=== PATIENT | female | born 1950 | race Caucasian/White ===

== ENCOUNTER 2022-06-06 12:51 | Emergency (ER) | payer MEDICARE, BC, SELFPAY ==
--- NOTE | 2022-06-06 13:06 | CRLHL7_ITS ---
For Patients: As a result of the Cures Act, medical imaging exams and procedure reports are released immediately into your electronic medical record. You may view this report before your referring provider. If you have questions, please contact your health care provider. INDICATION: Cough. TECHNIQUE: Chest 1 views. COMPARISON: None. FINDINGS: Lungs: Clear lungs. No consolidation. Pleura: No pleural effusion or pneumothorax. Heart and Mediastinum: The cardiomediastinal silhouette is normal. The vessels are unremarkable. Bones: Unremarkable. IMPRESSION: No acute cardiopulmonary disease. Dictated by Jules Tellez MD @ 06/06/2022 1:29:41 PM (Electronically Signed)
[2022-06-06 13:08] VITALS: BP 144/88; PULSE 85; RESP 18; TEMP 37; O2SAT 97; BMI 21.0
--- NOTE | 2022-06-06 13:17 | ED_ITS ---
HPI - Weakness General Date Seen: 06/06/22 Chief complaint: Cough Stated complaint: Congestion,cough Time Seen by Provider: 06/06/22 12:54 Source: patient and family Mode of arrival: ambulatory Limitations: no limitations History of Present Illness HPI Narrative: Patient is a kvng 72-year-old female who presents here with her she has had a cough and cold-like symptoms now for approximately 3-4 days, and a little bit of weakness associated with this. She is not having any chest pain, no shortness of breath, she is not on chronic oxygen, she had a little bit of nausea yesterday, but feels better today. Being a little bit of ibuprofen every now and then for the discomfort. She is COVID vaccinated x3, but her who is here also with her is testing positive for COVID so she thought she should also get tested. MD Complaint: generalized weakness Associated symptoms: nausea/vomiting Related Data Home Medications Medication Instructions Recorded Confirmed amlodipine 2.5 mg tablet mg 06/06/22 estradiol 0.5 mg tablet mg 06/06/22 rosuvastatin 5 mg tablet mg 06/06/22 Previous Rx's Medication Instructions Recorded nirmatrelvir 300 mg (150 mg See Rx Instructions PO .COMPLEX 06/06/22 x2)-ritonavir 100 mg tablet,dose #30 ea pack(EUA) (Paxlovid) Allergies Allergy/AdvReac Type Severity Reaction Status Date / Time No Known Drug Allergies Allergy Verified 06/06/22 13:07 Review of Systems Status of ROS: Reports: 10 or more systems reviewed and unremarkable except as noted in History and below Exam Narrative: Exam Narrative: Super pleasant lady is seen in room 2 with her , she is nontoxic, able to speak to me in full sentences and walk around the room. Her pupils are equal round reactive to light there is no scleral icterus redness TMs are normal oropharynx normal her neck is supple full range of motion normal hydration status is noted chest is good air entry bilaterally with a little bit of crackles on her left side. Posterior, tactile fremitus is negative, no dullness to percussion, heart sounds no clicks murmurs or gallops her abdomen is soft there is no guarding no past splenomegaly bowel sounds are normal. And skin was no petechiae or rashes there is no edema of her lower extremities, negative Homans sign. Const: Vital Signs, click to edit/add: Vital Signs - 24 hr 06/06/22 13:08 Temperature 98.6 F Pulse Rate [Right Pulse Oximeter] 85 Respiratory Rate 18 Blood Pressure [Ri ght Upper Arm] 144/88 H Pulse Oximetry 97 Oxygen Delivery Me thod Room Air Course Course Hospital Course: Patient is comfortable, I explained to them that her COVID is positive, given her age and other comorbidities I would suggest Paxlovid, through the liver pool interaction check, we will have her hold her Rosuvastatin and restarted 3 days after she is done, she also use or amlodipine every other day. Went over signs and symptoms of worsening, she will re-presented if this occurs. Vital Signs Vital signs: Initial Vital Signs Temperature 98.6 F 06/06/22 13:08 Temperature Source Temporal Artery Scan 06/06/22 13:08 Pulse Rate 85 06/06/22 13:08 Respiratory Rate 18 06/06/22 13:08 Blood Pressure 144/88 H 06/06/22 13:08 Blood Pressure Mean 106 06/06/22 13:08 Blood Pressure Position Sitting 06/06/22 13:08 Pulse Oximetry 97 06/06/22 13:08 Oxygen Delivery Method 06/06/22 13:08 Vital Signs Temperature 98.6 F 06/06/22 13:08 Pulse Rate 85 06/06/22 13:08 Respiratory Rate 18 06/06/22 13:08 Blood Pressure 144/88 H 06/06/22 13:08 Pulse Oximetry 97 06/06/22 13:08 Oxygen Delivery Method 06/06/22 13:08 Temperature 98.6 F 06/06/22 13:08 Pulse Rate 85 06/06/22 13:08 Respiratory Rate 18 06/06/22 13:08 Blood Pressure 144/88 H 06/06/22 13:08 Pulse Oximetry 97 06/06/22 13:08 Oxygen Delivery Method 06/06/22 13:08 MDM - Weakness MDM Narrative Medical decision making narrative: Differential diagnosis include a viral upper respiratory illness, histoplasmosis, tuberculosis, pneumonia, COPD exacerbation, emphysema, strep throat illness, bronchitis, asthma, reactive airway disease, chronic cough, medication side effects, allergic rhinitis with postnasal drip, foreign body aspiration, aspiration pneumonia, bronchiolitis, and gastroesophageal reflux disease as well as multiple other considerations. Medical Records Attestation: I reviewed the patient's medical records. Lab Data Attestation: I reviewed the patient's lab results. Labs: Lab Results 06/06/22 06/06/22 Range/Units 13:06 14:57 Sodium 141 (135-149) mmol/L Potassium 3.7 (3.6-5.1) mmol/L Chloride 103 (96-114) mmol/L Creatinine 0.6 (0.5-1.5) mg/dL Estimated Creat Clear 48.73 Estimated GFR 97 ml/min SARS-CoV-2 (PCR) POSITIVE SARS-CoV-2 A (Negative) Influenza Type A (PCR) Negative PCR FLU A (Negative) Influenza Type B (PCR) Negative PCR FLU B (Negative) RSV (PCR) Negative PCR RSV (Negative) Imaging Data Chest x-ray: Attestation: I have reviewed the pertinent imaging results. My impression: No acute findings per chest x-ray Radiologist's impression: Patient: MARSHA ESCALANTE Facility: [facility] Site . Site : 1950 Study: XRay Chest PORTABLE-06/06/2022 1:28:29 PM Ordering Physician: Jasmine Zabala Final Report: INDICATION: Cough. TECHNIQUE: Chest 1 views. COMPARISON: None. FINDINGS: Lungs: Clear lungs. No consolidation. Pleura: No pleural effusion or pneumothorax. Heart and Mediastinum: The cardiomediastinal silhouette is normal. The vessels are unremarkable. Bones: Unremarkable. IMPRESSION: No acute cardiopulmonary disease. Dictated by Jules Tellez MD @ 06/06/2022 1:29:41 PM (Electronic Signature) Discharge Plan Discharge Clinical Impression: COVID-19 Patient Disposition: Home w/ Parent or Adult Condition: Stable Instructions: COVID-19 (Coronavirus Disease 2019) (ED) Additional Instructions: Home rest watch for signs of worsening which or chest pain coughing, increasing fevers chills nausea vomiting. Still do recommend you by oxygen saturation monitor and monitor this and return to the emergency room if less than 90% consistently. Please take the Paxlovid as directed, Hold your Rosuvastin till 3 days after you finish taking the antiviral Paxlovid. You may then restarted. Take your amlodipine every other day while your on the Paxlovid, and then you may take it every day after that is done. Prescriptions: New Paxlovid (EUA) 300 mg (150 mg x 2)-100 mg tablets,dose pack See Rx Instructions .ROUTE .COMPLEX Qty: 30 0RF Rx Instructions: take TWO 150 mg tablets of nirmatrelvir with ONE 100 mg tablet of ritonavir twice daily for 5 days No Action amlodipine 2.5 mg tablet estradiol 0.5 mg tablet rosuvastatin 5 mg tablet Follow Up/Referrals: Fran Foy MD [Primary Care Provider] - Stand Alone Forms: [employer] Info Instructions
[2022-06-06 14:12] LABS: PCR FLU A Negative PCR FLU A (Negative); PCR FLU B Negative PCR FLU B (Negative); PCR RSV Negative PCR RSV (Negative)
[2022-06-06 14:18] LABS: SARS PCR* POSITIVE SARS-CoV-2 (Negative)
[2022-06-06 15:40] LABS: Chloride* 103 mmol/L (96-114); Potassium* 3.7 mmol/L (3.6-5.1); Sodium* 141 mmol/L (135-149)
[2022-06-06 15:43] LABS: Blood Urea Nitrogen* 11 mg/dL (7-30); Calcium* 9.4 mg/dL (8.4-10.6); Carbon Dioxide* 28 mmol/L (20-32); Creatinine* 0.6 mg/dL (0.5-1.5); Est. Creatinine Clearance* 48.73; Estimated Glomerular Filt Rate 97 ml/min; Glucose* 127 mg/dL (60-115)
== END 2022-06-06 16:14 | disposition home or self-care (01) ==
PROVIDERS: Emergency Provider Family Medicine; PCP Family Medicine
DX: U07.1 COVID-19 (principal)
CPT/HCPCS: 36415; 71045; 80048; 87502; 87634; 87635; 99284

== ENCOUNTER 2022-09-29 13:17 | Outpatient (CLI) | payer MEDICARE, BC, SELFPAY ==
[2022-09-29 22:39] LABS: Chloride* 103 mmol/L (96-114)
[2022-09-29 22:40] LABS: Albumin* 4.7 g/dL (3.3-5.0); Potassium* 4.6 mmol/L (3.6-5.1); Sodium* 141 mmol/L (135-149)
[2022-09-29 22:43] LABS: Alanine Aminotransferase* 24 U/L (4-35); Alkaline Phosphatase* 76 U/L (40-150); Aspartate Amino Transferase* 31 U/L (12-35); Bilirubin Total* 0.6 mg/dL (0.1-1.5); Blood Urea Nitrogen* 17 mg/dL (7-30); Calcium* 9.5 mg/dL (8.4-10.6); Carbon Dioxide* 32 mmol/L (20-32); Creatinine* 0.7 mg/dL (0.5-1.5); Estimated Glomerular Filt Rate 93 ml/min; Glucose* 89 mg/dL (60-115); Total Protein* 7.7 g/dL (6.0-8.3)
[2022-10-02 09:40] LABS: Vitamin D, 1,25-Dihydroxy 62.3 pg/mL (19.9-79.3)
== END 2022-09-29 13:18 | disposition home or self-care (01) ==
PROVIDERS: PCP Family Medicine; Visit Provider Family Medicine
DX: R41.3 Other amnesia (principal); M81.0 Age-related osteoporosis without current pathological fracture; E78.00 Pure hypercholesterolemia, unspecified; M85.80 Other specified disorders of bone density and structure, unspecified site; Z13.21 Encounter for screening for nutritional disorder
CPT/HCPCS: 80053; 82652

== ENCOUNTER 2023-02-27 09:55 | Outpatient (CLI) | payer MEDICARE, BC, SELFPAY | END 2023-02-27 09:56 | disposition home or self-care (01) | PROVIDERS: PCP Family Medicine; Visit Provider Family Medicine | DX: Z00.00 Encounter for general adult medical examination without abnormal findings (principal); I10 Essential (primary) hypertension; E78.00 Pure hypercholesterolemia, unspecified; F02.80 Dementia in other diseases classified elsewhere, unspecified severity, without behavioral disturbance, psychotic disturbance, mood disturbance, and anxiety; G30.9 Alzheimer's disease, unspecified | CPT/HCPCS: 80053; 80061; 84443 ==

== ENCOUNTER 2023-05-19 12:42 | Outpatient (CLI) | payer MEDICARE, BC, SELFPAY ==
--- NOTE | 2023-05-19 13:00 | CRLHL7_ITS ---
For Patients: As a result of the Century Cures Act, medical imaging exams and procedure reports are released immediately into your electronic medical record. You may view this report before your referring provider. If you have questions, please contact your health care provider. BILATERAL SCREENING MAMMOGRAM WITH COMPUTER-AIDED DETECTION AND TOMOSYNTHESIS TECHNIQUE: CC and MLO views were obtained. These mammographic images have been obtained using full-field digital technique. These mammographic images were interpreted with the benefit of computer-aided detection. Breast Tomosynthesis was used in this interpretation. COMPARISON FILM: 09/02/21, 07/27/20, 07/26/19. FINDINGS: There are scattered areas of fibroglandular density IMPRESSION: There is no radiographic evidence for malignancy. ASSESSMENT: BI-RADS Category 1: Negative RECOMMENDATION: Routine screening mammogram in 1 year. A lay language report of this examination will be provided to the patient. Ricardo Solis M.D. Diagnostic Radiologist [email or web address] HELIO/Dictated by: Ricardo Solis MD @ 05/20/2023 12:07:00 PM (Electronically Signed)
== END 2023-05-19 12:43 | disposition home or self-care (01) ==
PROVIDERS: PCP Family Medicine; Visit Provider Family Medicine
DX: Z12.31 Encounter for screening mammogram for malignant neoplasm of breast (principal)
CPT/HCPCS: 77063; 77067

== ENCOUNTER 2023-07-07 09:26 | Outpatient (RCR) | payer SELFPAY | END 2024-06-07 08:33 | disposition home or self-care (01) | LOC: MOW 09:26 | PROVIDERS: PCP Family Medicine; Visit Provider Family Medicine | DX: Z76.0 Encounter for issue of repeat prescription (principal) | CPT/HCPCS: S5170 ==

== ENCOUNTER 2023-07-27 16:30 | Emergency (ER) | payer MEDICARE, BC, SELFPAY ==
[2023-07-27 16:46] VITALS: BP 136/70; PULSE 72; RESP 18; TEMP 36.5; O2SAT 96; BMI 21.6
--- NOTE | 2023-07-27 17:09 | CRLHL7_ITS ---
For Patients: As a result of the Cures Act, medical imaging exams and procedure reports are released immediately into your electronic medical record. You may view this report before your referring provider. If you have questions, please contact your health care provider. INDICATION: Fall, upper arm pain. TECHNIQUE: Humerus radiographs 2 views COMPARISON: None FINDINGS: On the AP view, there is cortical irregularity at lateral margin of the right humeral neck, suspicious for impacted fracture of the greater tuberosity. Glenohumeral and AC joint alignment grossly intact. No additional fracture of the mid to distal right humerus. IMPRESSION: 1. Impacted fracture of the l greater tuberosity of the proximal right humerus. Dictated by Gordo Garcia MD @ 07/27/2023 6:34:34 PM Dictated by: Gordo Garcia MD @ 07/27/2023 18:34:38 (Electronically Signed)
--- NOTE | 2023-07-27 17:36 | ED_ITS ---
HPI - Extremity Injury (Upper) General Chief Complaint: Extremity Pain/Injury, Upper Stated Complaint: Fall, R shoulder injury Time Seen by Provider: 07/27/23 17:29 History of Present Illness HPI narrative: This 73-year-old female comes in with an injury to her right upper extremity. Just prior to arrival she was walking into the garage and was a little step up that she tripped over and fell onto her left arm. She states that she did not hit her head or have loss of consciousness. She does not report any other injury but does have pain in the proximal and posterior aspect of her right upper extremity. Related Data Previous Rx's Medication Instructions Recorded amlodipine 2.5 mg tablet 2.5 mg PO DAILY #90 tabs 02/27/23 donepezil 5 mg tablet (Aricept) 5 - 10 mg (1 - 2 x 5 mg) PO QHS 02/27/23 #60 tabs estradiol 0.5 mg tablet 0.5 mg PO DAILY #90 tabs 02/27/23 rosuvastatin 5 mg tablet 5 mg PO QPM #90 tabs 02/27/23 hydrocodone 5 mg-acetaminophen 325 1 tab PO Q4-6H PRN pain #20 tabs 07/27/23 mg tablet Allergies Allergy/AdvReac Type Severity Reaction Status Date / Time crab Allergy Severe swelling Verified 02/27/23 09:17 of face Review of Systems Status of ROS: Reports: 10 or more systems reviewed and unremarkable except as noted in History and below Narrative: Constitutional: No fevers, no weight gain or loss. Eyes: No discharge. No vision changes. HENT: No congestion, no sore throat, no ear pain. Cardiovascular: No chest pain, no palpitations. Respiratory: No shortness of breath, no wheezes, no cough. Gastrointestinal: No abdominal pain, no vomiting, no diarrhea. Genitourinary: No dysuria, no hematuria. Musculoskeletal: Pain in the right upper extremity with associated decreased range of motion. Skin: No rashes, no pruritis. Neurological: No dizziness, weakness, sensory change, speech change. Endo/Heme/Allergies: No bruising or bleeding. No polydipsia. Pysch: no suicidality, no anxiety, no insomnia. All other systems reviewed and are negative. [facility] Medical History (Updated 07/27/23 @ 18:55 by Kip Ron MD) Hypertension ?I10 - Essential (primary) hypertension (ICD-10) Alzheimer disease ?G30.9 - Alzheimer's disease, unspecified (ICD-10) ?F02.80 - Dementia in other diseases classified elsewhere, unspecified severity, without behavioral disturbance, psychotic disturbance, mood disturbance, and anxiety (ICD-10) Osteoporosis ?M81.0 - Age-related osteoporosis without current pathological fracture (ICD- 10) Encounter for routine history and physical examination of adult ?Z00.00 - Encounter for general adult medical examination without abnormal findings (ICD-10) Encounter for annual wellness exam in Medicare patient ?Z00.00 - Encounter for general adult medical examination without abnormal findings (ICD-10) Need for prophylactic measure ?Z29.9 - Encounter for prophylactic measures, unspecified (ICD-10) Shingles ?B02.9 - Zoster without complications (ICD-10) Surgical History (Updated 09/24/22 @ 07:51 by Marci Huff ~ PSR) History of hysterectomy for benign disease ?Z90.710 - Acquired absence of both cervix and uterus (ICD-10) History of colonoscopy ?Z98.890 - Other specified postprocedural states (ICD-10) Family History (Updated 09/24/22 @ 07:56 by Marci Huff ~ PSR) Other Alzheimers disease Social History Smoking Status: Never smoker Do you use any of these nicotine containing products: None Second hand tobacco smoke exposure: No How often do you have a drink containing alcohol: never AUDIT-C Alcohol total score: 0 Non-prescribed substance use: denies use Little interest or pleasure in doing things: not at all Feeling down, depressed, or hopeless: not at all Exam Narrative: Exam Narrative: Constitutional: Well-developed, well-nourished, no acute distress. HEENT: Normocephalic, atraumatic. Neck: Normal range of motion. Nontender. Supple. Heart: Regular. No murmurs. Normal rate. Intact distal pulses. Lungs: Clear to auscultation. No chest discomfort. No wheezes, rhonchi, or rales. Abdomen: Normal bowel sounds. Nontender. No rebound tenderness. Genitalia: Deferred. Back: No midline tenderness. Normal range of motion. Extremities: No tenderness when palpating along the right clavicle. Diffuse tenderness in the proximal upper right arm. She is unable to raise her arm at her shoulder joint due to pain. Skin: Intact. No rash. Warm. No erythema or pallor. Neurologic: No altered sensation. No weakness. Alert and oriented. Psychiatric: No suicidality. No anxiety or depression. No insomnia. Nursing notes and vitals signs are reviewed. Const: Vital Signs, click to edit/add: Vital Signs - 24 hr 07/27/23 16:46 Temperature 97.7 F Pulse Rate [Pulse Oximeter] 72 Respiratory Rate 18 Blood Pressure [Le ft Upper Arm] 136/70 Pulse Oximetry 96 Oxygen Delivery Me thod Room Air Course Vital Signs Vital signs: Initial Vital Signs Temperature 97.7 F 07/27/23 16:46 Temperature Source Temporal Artery Scan 07/27/23 16:46 Pulse Rate 72 07/27/23 16:46 Respiratory Rate 18 07/27/23 16:46 Blood Pressure 136/70 07/27/23 16:46 Blood Pressure Mean 92 07/27/23 16:46 Pulse Oximetry 96 07/27/23 16:46 Oxygen Delivery Method Room Air 07/27/23 16:46 Vital Signs Temperature 97.7 F 07/27/23 16:46 Pulse Rate 72 07/27/23 16:46 Respiratory Rate 18 07/27/23 16:46 Blood Pressure 136/70 07/27/23 16:46 Pulse Oximetry 96 07/27/23 16:46 Oxygen Delivery Method Room Air 07/27/23 16:46 Temperature 97.7 F 07/27/23 16:46 Pulse Rate 72 07/27/23 16:46 Respiratory Rate 18 07/27/23 16:46 Blood Pressure 136/70 07/27/23 16:46 Pulse Oximetry 96 07/27/23 16:46 Oxygen Delivery Method Room Air 07/27/23 16:46 MDM - Extremity Injury (Upper) MDM Narrative Medical decision making narrative: This patient comes in with an injury to her right upper extremity as described above. X-ray imaging shows evidence of a compacted fracture of the proximal right humerus. This patient was placed in a sling and she received a prescription for [place]. She is encouraged to follow-up with orthopedic clinic. Imaging Data XR R Humerus: Radiologist's impression: 1. Impacted fracture of the l greater tuberosity of the proximal right humerus. Discharge Plan Discharge Clinical Impression: Fracture, humerus Patient Disposition: Home w/ Parent or Adult Condition: Unchanged Additional Instructions: Wear sling and use medication for pain as needed and directed. Follow-up with orthopedic clinic for ongoing management. Call [phone] for appointment. Return if worsening. Prescriptions: New hydrocodone-acetaminophen 5-325 mg tablet 1 tab PO Q4-6H PRN (Reason: pain) Qty: 20 0RF No Action donepezil [Aricept] 5 mg tablet 5 - 10 mg PO QHS Qty: 60 5RF estradiol 0.5 mg tablet 0.5 mg PO DAILY Qty: 90 3RF amlodipine 2.5 mg tablet 2.5 mg PO DAILY Qty: 90 3RF rosuvastatin 5 mg tablet 5 mg PO QPM Qty: 90 4RF Follow Up/Referrals: Fran Foy MD [Primary Care Provider] - Stand Alone Forms: [employer] Info Instructions
[2023-07-27 19:16] VITALS: BP 148/88; PULSE 74; RESP 18; O2SAT 94
== END 2023-07-27 19:17 | disposition home or self-care (01) ==
PROVIDERS: Emergency Provider Emergency Medicine Emergency Medical Services; PCP Family Medicine
DX: S42.294A Other nondisplaced fracture of upper end of right humerus, initial encounter for closed fracture (principal); W01.0XXA Fall on same level from slipping, tripping and stumbling without subsequent striking against object, initial encounter
CPT/HCPCS: 73060; 99283; 99284

== ENCOUNTER 2024-02-12 17:05 | Outpatient (CLI) | payer MEDICARE, SELFPAY | END 2024-02-12 17:06 | disposition home or self-care (01) | LOC: NFLDREF 02-29 15:37 | PROVIDERS: PCP Family Medicine; Referring Provider Family Medicine; Visit Provider Family Medicine | DX: Z00.00 Encounter for general adult medical examination without abnormal findings (principal); M81.0 Age-related osteoporosis without current pathological fracture; I10 Essential (primary) hypertension; E78.00 Pure hypercholesterolemia, unspecified; G30.9 Alzheimer's disease, unspecified; F02.80 Dementia in other diseases classified elsewhere, unspecified severity, without behavioral disturbance, psychotic disturbance, mood disturbance, and anxiety; Z79.890 Hormone replacement therapy | CPT/HCPCS: 80053; 80061 ==

== ENCOUNTER 2024-04-27 13:34 | Outpatient (CLI) | payer MEDICARE, SELFPAY ==
--- NOTE | 2024-04-27 14:00 | CRLHL7_ITS ---
For Patients: As a result of the Century Cures Act, medical imaging exams and procedure reports are released immediately into your electronic medical record. You may view this report before your referring provider. If you have questions, please contact your health care provider. DXA BONE MINERAL DENSITY STUDY Current height (in): 65.5. Weight (lb): 128.0. Menopause age: 42. Ethnicity: White. 1. Have you had a previous hip or vertebral fracture? No. 2. Have you had any fractures during your adult life which did not result from significant trauma (e.g., auto accident)? Yes. 3. Did either of your parents have a hip fracture? No. 4. Do you smoke? No. 5. Have you ever taken Glucocorticoids? No. 6. Do you have rheumatoid arthritis? No. 7. Do you have secondary osteoporosis? Yes. 8. Do you drink 3 or more alcoholic drinks per day? No. 9. Are you being treated for osteoporosis? Yes. 10. Have you ever taken any of the following medications: Actonel, Evista, Fosamax, Miacalcin, Reclast, Boniva, Forteo, HRT (i.e. estrogen/hormone therapy), Protelos, Prolia, Vitamin D, Calcium, other ??? please specify. ANSWER: Yes, Vitamin D, Calcium. 11. Do you have any of the following medical conditions: Anorexia or bulimia, asthma or emphysema, end stage renal disease, hyperparathyroidism, any seizure disorders, cancer, inflammatory bowel diseases, hysterectomy, other ??? please specify. ANSWER: Yes, Hysterectomy. 12. What was your maximum height (inches)? 66. 13. Do you perform weight bearing exercise regularly? No. 14. Do you regularly consume dairy products? Yes. 15. Do you drink caffeinated beverages? No. If female: 16. At what age did your period start? 14. 17. Are you premenopausal? No. 18. How many full term pregnancies have you had? 3. 19. Have you ever missed your period for more than 6 months in a row (not including or menopause)? No. TECHNIQUE: Bone mineral density study was performed using the [employer]. FINDINGS: The results of the study expressed as bone mineral density (BMD) are as follows: Lumbar spine L1 to L3: BMD: 0.889 g/cm2. T-score: -1.2. Z-score: 1.0. Neck Left: BMD: 0.525 g/cm2. T-score: -2.9 . Z-score: -1.0. Right: BMD: 0.542 g/cm2. T-score: -2.8 . Z-score: -0.9. Total Left: BMD: 0.706 g/cm2. T-score: -1.9 . Z-score: -0.3. Right: BMD: 0.693 g/cm2. T-score: -2.0 . Z-score: -0.4. IMPRESSION: Osteoporosis. *Comparison exams done prior to 02/2020 were performed on different unit, [employer]. COMPARISON: Compared with scan of 01/16/2022, the bone mineral density has increased by 14.7 percent at the spine and decreased by 6.2 percent at the hip. Compared with scan of 06/30/2019, the bone mineral density has decreased by 9.3 percent at the spine and increased by 7.6 percent at the hip. Ricardo Solis M.D. Diagnostic Radiologist [email or web address] RULA/apryl JR/Dictated by: Ricardo Solis MD @ 04/28/2024 10:03:00 AM (Electronically Signed)
== END 2024-04-27 13:35 | disposition home or self-care (01) ==
LOC: RAD 13:36
PROVIDERS: PCP Family Medicine; Visit Provider Family Medicine
DX: M81.0 Age-related osteoporosis without current pathological fracture (principal)
CPT/HCPCS: 77080

== ENCOUNTER 2024-06-07 08:36 | Outpatient (RCR) | payer SELFPAY | END 2025-06-07 08:13 | disposition home or self-care (01) | LOC: MOW 08:36 | PROVIDERS: PCP Family Medicine; Visit Provider Family Medicine | DX: Z76.0 Encounter for issue of repeat prescription (principal) | CPT/HCPCS: S5170 ==

== ENCOUNTER 2025-03-16 09:37 | Inpatient (IN) | payer MEDICARE, SELFPAY ==
[2025-03-16 09:51] VITALS: BP 122/64; PULSE 80; RESP 16; TEMP 37.2; O2SAT 98; BMI 21.0
--- NOTE | 2025-03-16 10:07 | ED_ITS ---
HPI - General Adult General Date Seen: 03/16/25 Chief complaint: Hip Injury/Pain Stated complaint: Fall, R hip injury Time Seen by Provider: 03/16/25 10:06 Source: family History of Present Illness HPI narrative: 74-year-old female with history of Alzheimer's disease is brought to the ER today by her family. She is resident of [facility]. She also has a history of hypertension and is on amlodipine, high cholesterol on rosuvastatin. She is on Aricept. She had a fall a few days ago at [facility]. She had x-rays obtained 2 days ago on 03/14. Apparently the radiology read from the x-rays came back this morning and showed an acute femoral neck fracture. A apparently this finding came to the patient's caregivers knowledge this morning so they brought her here to the ER. X-rayreport is from ?[facility]? Dated 03/14/2025 at 6:40 p.m. Findings: Acute femoral neck fracture is noted. [id number] degenerative changes are seen. Pelvis is intact. There is no focal bone lesion. Alignment is anatomic. There is no soft tissue swelling or foreign body identified. Impression: Acute femoral neck fracture is noted. CURTIS CURTIS DO 6:40 :52PM 03/14/2025 Because of her dementia history is obtained from her son. She does have Alzheimer's and is a long-term resident at [facility]. She was with her family over the holiday weekend and apparently was playing some volleyball when she fell on her hip. Initially she seemed to laugh off the injury and was able to get up and walk. However for the past several days she has been having increasing pain. It has gotten so bad that she has been relying on wheelchair is to get all of her mobilization and even has been difficulty with transfers. She had x-rays of her hip that were rib resulted last night showing a femoral neck fracture. They were sent to the ER this morning to get evaluated. Patient denies any other painful injuries. She says she is not having any pain in her hip right now but does seem to have some pain when we try to mobilize and do range of motion her hip. It sounds like she is quite having a lot of pain whenever she tries to stand up and transfer. She is not able to walk and her son reports she has been completely reliant on a wheelchair for the past couple of days. She is not anticoagulated. She denies any recollection of previous hip surgeries. Related Data Home Medications ?Medication ?Instructions ?Recorded ?Confirmed acetaminophen 325 mg tablet 650 mg PO Q4H PRN 03/16/25 03/16/25 alendronate 70 mg tablet (Fosamax) 70 mg PO .QMONDAY 0 03/16/25 03/16/25 amlodipine 5 mg tablet 5 mg PO DAILY 03/16/2503/16 calcium ER 600 mg (as carb,cit)-D3 2 tab PO DAILY 03/0703/16/25 12.5 mcg (500 unit) tablet, ext.rel (Citracal-D3 Slow Release) donepezil 10 mg tablet (Aricept) 10 mg PO HS 03/16/25 03/16/25 rosuvastatin 5 mg tablet 5 mg PO HS 03/16/25 03/16/25 Previous Rx's ?Medication ?Instructions ?Recorded estradiol 0.5 mg tablet 0.5 mg PO DAILY #90 tabs 01/29 Allergies Allergy/AdvReac Type Severity Reaction Status Date / Time shellfish derived Allergy Severe swelling Verified 03/16/25 09:51 [facility] Medical History (Updated 03/16/25 @ 11:26 by Yobani Valencia MD) Preventative health care ?Z00.00 - Encounter for general adult medical examination without abnormal findings (ICD-10) Hypertension ?I10 - Essential (primary) hypertension (ICD-10) Alzheimer disease ?G30.9 - Alzheimer's disease, unspecified (ICD-10) ?F02.80 - Dementia in other diseases classified elsewhere, unspecified severity, without behavioral disturbance, psychotic disturbance, mood disturbance, and anxiety (ICD-10) Osteoporosis ?M81.0 - Age-related osteoporosis without current pathological fracture (ICD- 10) Encounter for routine history and physical examination of adult ?Z00.00 - Encounter for general adult medical examination without abnormal findings (ICD-10) Encounter for annual wellness exam in Medicare patient ?Z00.00 - Encounter for general adult medical examination without abnormal findings (ICD-10) Need for prophylactic measure ?Z29.9 - Encounter for prophylactic measures, unspecified (ICD-10) Shingles ?B02.9 - Zoster without complications (ICD-10) Surgical History (Updated 09/24/22 @ 07:51 by Marci Huff ~ PSR) History of hysterectomy for benign disease ?Z90.710 - Acquired absence of both cervix and uterus (ICD-10) History of colonoscopy ?Z98.890 - Other specified postprocedural states (ICD-10) Family History (Updated 09/24/22 @ 07:56 by Marci Huff ~ PSR) Other Alzheimers disease Social History Smoking Status: Never smoker Do you use any of these nicotine containing products: None Second hand tobacco smoke exposure: No How often do you have a drink containing alcohol: never AUDIT-C Alcohol total score: 0 Non-prescribed substance use: denies use Exam Narrative: Exam Narrative: Constitutional: Appears well-developed and well-nourished. Alert. Conversant, and very polite but has very poor short-term memory. Cannot really provide history. Non toxic. HENT: Head: Atraumatic. Nose: Nose normal. Mouth/Throat: Oral mucosa is clear and moist. no trismus. Pharynx normal. Tonsils symmetric. No tonsillar enlargement, erythema, or exudate. Eyes: Conjunctivae normal. EOM normal. Pupils equal, round, and reactive to lig ht. No scleral icterus. Neck: Normal range of motion. Neck supple. No tracheal deviation present. No posterior midline tenderness. Cardiovascular: Normal rate, regular rhythm. No gallop. No friction rub. No murmur heard. Symmetric radial and PT artery pulses Pulmonary/Chest: Effort normal. No stridor. No respiratory distress. No wheezes. No rales. No rhonchi . No tenderness. Abdominal: Soft. Bowel sounds normal. No distension. No mass. No tenderness. No rebound. No guarding. Musculoskeletal: No T or L-spine tenderness. Pelvis is stable. RUE: Normal range of motion. No tenderness. No deformity LUE: Normal range of motion. No tenderness. No deformity RLE: No deformity. No rotational injury. No bruising or redness around the hip. She does have a little bit of pain with palpation on the right anterior proximal thigh. She notes pain in her hip and thigh when we try to flex her right hip beyond about 30?. Distal femur, knee, lower leg, ankle, foot are normal and nontender. LLE: Normal range of motion. No edema. No tenderness. No deformity Neurological: Alert and oriented to person, place, but not date. She is at her baseline memory for her Alzheimer's.. Normal strength. CN II-VII intact. No sensory deficit. GCS eye subscore is 4. GCS verbal subscore is 5. GCS motor subscore is 6. Normal coordination Skin: Skin is warm and dry. No rash noted. No pallor. Normal capillary refill. Psychiatric: Normal mood. Normal affect. Smiling. Const: Vital Signs, click to edit/add: Vital Signs - 24 hr 03/16/25 09:51 Temperature 99.0 F Pulse Rate [Pulse Oximeter] 80 Respiratory Rate 16 Blood Pressure [Le ft Upper Arm] 122/64 Pulse Oximetry 98 Oxygen Delivery Me thod Room Air Course Vital Signs Vital signs: Initial Vital Signs Temperature 99.0 F 03/16/25 09:51 Temperature Source Temporal Artery Scan 03/16/25 09:51 Pulse Rate 80 03/16/25 09:51 Pulse Rhythm Regular 03/16/25 09:51 Pulse Strength 3+ Normal 03/16/25 09:51 Respiratory Rate 16 03/16/25 09:51 Blood Pressure 122/64 03/16/25 09:51 Blood Pressure Mean 83 03/16/25 09:51 Blood Pressure Position Supine 03/16/25 09:51 Pulse Oximetry 98 03/16/25 09:51 Oxygen Delivery Method Room Air 03/16/25 09:51 Vital Signs Temperature 99.0 F 03/16/25 09:51 Pulse Rate 80 03/16/25 09:51 Respiratory Rate 16 03/16/25 09:51 Blood Pressure 122/64 03/16/25 09:51 Pulse Oximetry 98 03/16/25 09:51 Oxygen Delivery Method Room Air 03/16/25 09:51 Temperature 99.0 F 03/16/25 09:51 Pulse Rate 80 03/16/25 09:51 Respiratory Rate 16 03/16/25 09:51 Blood Pressure 122/64 03/16/25 09:51 Pulse Oximetry 98 03/16/25 09:51 Oxygen Delivery Method Room Air 03/16/25 09:51 Medical Decision Making MDM Narrative Medical decision making narrative: Very pleasant 74-year-old female is brought to the ER today in a wheelchair by her son from her assisted living at [facility]. She has a right femoral neck fracture. Injury actually occurred sometime this weekend about 4-6 days ago when she was playing volleyball throat family and fell. She was initially able to bear weight but subsequently has been having increasing pain and has been essentially reliant on wheelchair and staying in bed for the past several days. She has been able to transfer with assistance and pain. While resting in bed she is not having pain but she does have a lot of pain when she tries to stand up on her hip. X-rays were obtained at [facility] it did show fracture, prompting her visit to the ER here today. We did repeat x-rays to make sure we could see the pictures and they do confirm a femoral neck fracture. The patient is neurovascularly intact in that right leg. She her family deny any other injuries from the fall. She is not anticoagulated. No headache. She is at her baseline mental status for dementia. No vomiting. No other symptoms of head injury. Discussed with our orthopedist, Dr. Martínez 10. He reviewed the imaging. Based on the patient's pain and imaging findings he would recommend operative fixation. Since the patient had breakfast this morning at 9:30 a.m., the operation cannot occur today, on . We will admit the patient to the hospitalist service, Dr. Hernandez accepting . EKG shows sinus rhythm. No definite ischemia. Screening labs are normal. Patient will need medical clearance for surgery by hospitalist, pain control. Anticipate NPO after midnight with plan for surgery tomorrow, possibly late morning or around noon. Discussed with the patient and her son who are in agreement with the plan. Lab Data Labs: Lab Results 03/16/25 Range/Units 10:21 WBC 6.20 (4.50-11.00) K/uL RBC 4.46 (4.00-5.20) m/uL Hgb 13.0 (12.0-16.0) gm/dL Hct 40.7 (33.0-51.0) % MCV 91 (80-100) fL MCH 29 (26-34) pg MCHC 32 (32-36) gm/dL RDW Coeff of Elizabeth 13.1 (11.5-15.5) % Plt Count 240 (140-440) K/uL Neut % (Auto) 72.0 (42.0-72.0) % Lymph % (Auto) 17.6 L (20-44) % Moore % (Auto) 7.7 (0.0-11.0) % Eos % (Auto) 2.1 (0.0-7.0) % Baso % (Auto) 0.3 (0.0-3.0) % Neut # (Auto) 4.46 (1.7-7.0) K/uL Lymph # (Auto) 1.10 (0.90-2.90) K/uL Moore # (Auto) 0.50 (0.00-0.90) K/UL Eos # (Auto) 0.13 (0.00-0.50) K/uL Baso # (Auto) 0.02 (0.00-0.30) K/uL Abs Immat Gran (auto) 0.02 (0.00-0.30) K/uL Imm/Tot Granulo (auto) 0.3 % INR 0.99 (0.91-1.10) Sodium 139 (135-149) mmol/L Potassium 3.9 (3.6-5.1) mmol/L Chloride 104 (96-114) mmol/L Carbon Dioxide 28 (20-32) mmol/L Anion Gap 7 (7-15) mEq/L BUN 17 (7-30) mg/dL Creatinine 0.7 (0.5-1.5) mg/dL Estimated Creat Clear 47.34 Estimated GFR 92 ml/min Glucose 191 H (60-115) mg/dL Calcium 8.8 (8.4-10.6) mg/dL ECG Data Attestation: I personally reviewed and interpreted this ECG as follows: Interpretation: Normal sinus rhythm Rate 74 IL interval 202 QRS axis normal. No pathologic Q-waves. Computer says ?cannot rule out anterior infarct, age undetermined? but I do not think there is a true infarct. ST segment and T-wave-no acute ST segment elevation or depression. QTC 452 Discharge Plan Discharge Clinical Impression: Femoral neck fracture Patient Disposition: Admitted As Observation
--- NOTE | 2025-03-16 10:24 | CRLHL7_ITS ---
For Patients: As a result of the Cures Act, medical imaging exams and procedure reports are released immediately into your electronic medical record. You may view this report before your referring provider. If you have questions, please contact your health care provider. Indication: RT HIP PAIN, FALL frontal Technique: View of the pelvis and frontal and lateral views of the right hip Comparison: None Findings/Impression: Nondisplaced right femoral neck subcapital/transcervical fracture. No additional fractures or malalignment. There are some minimal degenerative changes of the imaged lower lumbar spine. No significant osteoarthritic degenerative changes of the pelvis. No suspicious osseous lesions. The soft tissues are without acute abnormality. Small left pelvic phlebolith. Dictated by Florentino Patterson MD @ 03/16/2025 11:40:23 AM (Electronically Signed)
[2025-03-16 10:59] LABS: Chloride* 104 mmol/L (96-114); Potassium* 3.9 mmol/L (3.6-5.1); Sodium* 139 mmol/L (135-149)
[2025-03-16 11:02] LABS: Blood Urea Nitrogen* 17 mg/dL (7-30); Creatinine* 0.7 mg/dL (0.5-1.5); Est. Creatinine Clearance* 47.34; Estimated Glomerular Filt Rate 92 ml/min
[2025-03-16 11:03] LABS: Anion Gap 7 mEq/L (7-15); Calcium* 8.8 mg/dL (8.4-10.6); Carbon Dioxide* 28 mmol/L (20-32); Glucose* 191 mg/dL (60-115); INR 0.99 (0.91-1.10); Prothrombin Time 13.9 Seconds
[2025-03-16 11:09] LABS: Hematocrit 40.7 % (33.0-51.0); Hemoglobin* 13.0 gm/dL (12.0-16.0); Immature Granulocytes Abs Auto 0.02 K/uL (0.00-0.30); Immature Granulocytes Pct Auto 0.3 %; Mean Corpuscular HGB Conc 32 gm/dL (32-36); Mean Corpuscular Hemoglobin 29 pg (26-34); Mean Corpuscular Volume 91 fL (80-100); RDW Coefficient of Variation % 13.1 % (11.5-15.5); Red Blood Count 4.46 m/uL (4.00-5.20); White Blood Count* 6.20 K/uL (4.50-11.00)
[2025-03-16 11:10] LABS: Lymphocytes Absolute Auto 1.10 K/uL (0.90-2.90); Slide Review Reflex No
--- NOTE | 2025-03-16 12:49 | PM.IMHP1 ---
Assessment and Plan Assessment and plan (1) Femoral neck fracture: Problem comment: - ray 03/16/2025: Findings/Impression: Nondisplaced right femoral neck subcapital/transcervical fracture. No additional fractures or malalignment. There are some minimal degenerative changes of the imaged lower lumbar spine. No significant osteoarthritic degenerative changes of the pelvis. No suspicious osseous lesions. The soft tissues are without acute abnormality. Small left pelvic phlebolith. - prepare for surgical repair on 03/17/2025: NPO after midnight, pain management, general support. Dr. Holloway, orthopedic surgeon, consulted - physical therapy, occupational therapy, social worker health services consulted Status: Acute (2) Fall: Problem comment: - baseline unsteady gait Status: Acute (3) Osteoporosis: Problem comment: - consider additional management efforts in outpatient setting status post current hospitalization Status: Acute (4) Alzheimer disease: Problem comment: - high risk for delirium in hospital. Discuss this with her son, Levi, who indicates that he and his family members will continue to be near their mother at this time to help orient her and that they will bring full dose to help in this regard as well. Continue with other supportive efforts. Status: Acute (5) Hypertension: Status: Acute (6) On hormone replacement therapy: Status: Acute (7) Hypercholesterolemia: Status: Acute Plan 1. Reviewed impression with patient and her son Levi. Discuss plans and recommendations. 2. Answered their questions their satisfaction. 3. They are agreeable with above stated plans and recommendations. Total Time Spent Total Time Spent: 60 minutes Hospitalist- H&P: HPI History of Present Illness Date Seen: 03/16/25 Chief complaint: Fall, R hip injury Narrative: Delfina Lane is a 74 year old woman who resides at [facility] in [place], [place], with underlying moderate to severe late onset Alzheimer's disease presents with a 4-5 day history of persistent right hip pain status post fall while playing volleyball with her family this past weekend. Prior to the fall she was in her usual state of health. She is spending time with her family over the 10 of March weekend. She decided to play volleyball with her family. Sustained a fall while playing volleyball. Notice pain in the right hip but was able to get up and walk away. Since then the pain has been persistent. She states when she is still whether laying or sitting she has no pain. With weight-bearing or movement of the affected right hip she notices the pain. For the past 2-3 days she has been relying on a wheelchair for locomotion due to pain with weight-bearing. Has been transferring with assist and essentially nonweightbearing on the affected right lower extremity. Her physician ordered a x-ray of the pelvis and affected right hip which was obtained on 03/14/2025. Results came back this morning with reading indicating an acute femoral neck fracture. Upon receiving these results this morning, decision was made to transfer patient to the emergency department for further assessment and interventions as warranted. X-rays obtained at [facility] today, 03/16/2025, confirming a right femoral neck fracture with impaction. Physician emergency department conferred with orthopedic surgeon on-call and decision is made to proceed with surgery as early as tomorrow due to the persistent pain and discomfort and patient sudden inability to bear weight on the affected limb. Review of Systems Status of ROS: Reports: 6 or more systems reviewed and unremarkable except as noted in History and below Narrative: No other recent trauma or injury. No recent febrile illness of any sort. Denies cardiac, pulmonary, gastrointestinal, or genitourinary symptoms. Baseline dementia requiring a lot of reminders and support. Tends to be gregarious and gracious and grateful. 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 Designates her son, Levi, as her decision maker for healthcare should she be unable to make her own decision about her healthcare while in the hospital. Levi's phone number is [phone]. Requests full resuscitation in event of cardiopulmonary demise. No history of tobacco or alcohol use. Medical Decision Making Medical Decision Making Code Status: Full resuscitation Has patient completed a Health Care Directive: Yes During This Stay, Who Would You Like To Make Decisions For You In The Event You Are Unable To Make Them For Yourself?: Her son, Levi Lane, . [facility] Medical History Preventative health care ?Z00.00 - Encounter for general adult medical examination without abnormal findings (ICD-10) Hypertension ?I10 - Essential (primary) hypertension (ICD-10) Alzheimer disease ?G30.9 - Alzheimer's disease, unspecified (ICD-10) ?F02.80 - Dementia in other diseases classified elsewhere, unspecified severity, without behavioral disturbance, psychotic disturbance, mood disturbance, and anxiety (ICD-10) Osteoporosis ?M81.0 - Age-related osteoporosis without current pathological fracture (ICD-10) Encounter for routine history and physical examination of adult ?Z00.00 - Encounter for general adult medical examination without abnormal findings (ICD-10) Encounter for annual wellness exam in Medicare patient ?Z00.00 - Encounter for general adult medical examination without abnormal findings (ICD-10) Need for prophylactic measure ?Z29.9 - Encounter for prophylactic measures, unspecified (ICD-10) Shingles ?B02.9 - Zoster without complications (ICD-10) Surgical History History of hysterectomy for benign disease ?Z90.710 - Acquired absence of both cervix and uterus (ICD-10) History of colonoscopy ?Z98.890 - Other specified postprocedural states (ICD-10) Family History Other Alzheimers disease Social History Smoking Status: Never smoker Do you use any of these nicotine containing products: None Second hand tobacco smoke exposure: No How often do you have a drink containing alcohol: never AUDIT-C Alcohol total score: 0 Non-prescribed substance use: denies use Meds Home Medications and Allergies Home Medications ?Medication ?Instructions ?Recorded ?Confirmed ?Type estradiol 0.5 mg tablet 0.5 mg PO DAILY #90 tabs 02/09/25 03/16/25 Rx acetaminophen 325 mg tablet 650 mg PO Q4H PRN 03/16/25 03/16/25 History alendronate 70 mg tablet (Fosamax) 70 mg PO .QMONDAY 03/16/25 03/16/25 History amlodipine 5 mg tablet 5 mg PO DAILY 03/16/25 03/16/25 History calcium ER 600 mg (as carb,cit)-D3 2 tab PO DAILY 03/16/25 03/16/25 History 12.5 mcg (500 unit) tablet, ext.rel (Citracal-D3 Slow Release) donepezil 10 mg tablet (Aricept) 10 mg PO HS 03/16/25 03/16/25 History rosuvastatin 5 mg tablet 5 mg PO HS 03/16/25 03/16/25 History Allergies Allergy/AdvReac Type Severity Reaction Status Date / Time shellfish derived Allergy Severe swelling Verified 03/16/25 09:51 Exam Narrative: Exam Narrative: Examined patient in the emergency department with her son, Levi, near her side. Appears comfortable in no acute distress when laying still. Able to transfer from supine to sitting and sitting to standing with standby assist and directions. Unable to bear weight on affected right lower extremity due to pain. Able to sit comfortably on exam table, and sit comfortably in wheelchair. Oriented to self and in part to place. Needs to be reoriented to time and situation. Asks the same or similar questions multiple times despite our answering her question each time, such as when am I going to have surgery, how long will I be in the hospital, when will I go to my hospital for room? Vision and hearing are adequate. Conjugate gaze. Midline nasal septum. Dentition in good repair. Moist buccal mucosa. Normal oropharynx. Midline trachea. Normal thyroid. No JVD or hepatojugular reflux. Neck is supple. No head and neck lymphadenopathy. Lungs are clear to auscultation, without wheezing, rhonchi, rales. Chest wall excursions are full. Heart tones with regular rhythm, normal S1-S2, without murmur, gallop, rub. PMI not laterally displaced. Abdomen with active bowel sounds, soft, nontender. No organomegaly or masses. No rebound or guarding. Extremities without edema. Palpable pulses bilateral lower extremities and upper extremities. Skin is warm, dry, intact. Const: Vital Signs, click to edit/add: Vital Signs - 24 hr 03/16/25 09:51 Temperature 99.0 F Pulse Rate [Pulse Oximeter] 80 Respiratory Rate 16 Blood Pressure [Le ft Upper Arm] 122/64 Pulse Oximetry 98 Oxygen Delivery Me thod Room Air Hospitalist - H&P: Result Labs Labs: Short CBC 03/16/25 Range/Units 10:21 WBC 6.20 (4.50-11.00) K/uL Hgb 13.0 (12.0-16.0) gm/dL Hct 40.7 (33.0-51.0) % Plt Count 240 (140-440) K/uL [facility] 03/16/25 10:21 Sodium 139 Potassium 3.9 Chloride 104 Carbon Dioxide 28 BUN 17 Creatinine 0.7 Glucose 191 H Calcium 8.8 ECG ECG interpretation date: 03/16/25 Interpretation: Normal sinus rhythm. No evidence of ischemia or infarct. Imaging Right hip x-ray: Attestation: I have reviewed the pertinent imaging results. Radiologist's impression: Findings/Impression: Nondisplaced right femoral neck subcapital/transcervical fracture. No additional fractures or malalignment. There are some minimal degenerative changes of the imaged lower lumbar spine. No significant osteoarthritic degenerative changes of the pelvis. No suspicious osseous lesions. The soft tissues are without acute abnormality. Small left pelvic phlebolith.
[2025-03-16 13:21] VITALS: BP 142/80; PULSE 66; RESP 16; TEMP 36.7; O2SAT 99; BMI 23.1
[2025-03-16] MEDS: ACETAMINOPHEN 325 MG TABLET 650 MG PO ×3 (14:31→20:52)
--- NOTE | 2025-03-16 14:48 | PC.NURSE ---
Pt admitted for Hip Fx. AxOx4, pleasant, and cooperative with cares. Family at bedside. Pt denies pain to the hip. LSCTA on RA. VSS. Pt tolerating reg diet/fluids well. Continent of the bladder and bowels. Small BM this afternoon. Pt mobilizes self in and out of bed without bearing weight to the RLE, transferring from bed to wheelchair to toilet. Tolerated well. Pt reported understanding of call light and using appropriately. Call light within reach, watching television in bed.
[2025-03-16 15:00] VITALS: BP 120/70; PULSE 74; RESP 18; TEMP 36.9; O2SAT 94
[2025-03-16 16:24] LABS: Appearance Urine Clear (Clear)
--- NOTE | 2025-03-16 18:34 | PC.NURSE ---
End of shift report [id number]: Pleasant and cooperative with cares. Alert and oriented x 4, patient does require repetitive education and asks repetitive questions. Comprehension of education shown at time of teaching but unable to retain education. Pain to hip reported as dull and achy 1/10, no pain medication needed at this time as pain is tolerable. CMS intact to RLE. Transfers with SBA to w/c. Urinary frequency with small amounts voided each time she toilets.
[2025-03-16 19:35] VITALS: BP 136/85; PULSE 74; RESP 16; TEMP 36.2; O2SAT 95
[2025-03-16] MEDS: DONEPEZIL 10 MG TABLET PO (20:52)
[2025-03-16] MEDS: SODIUM CHLORIDE 0.9 % (FLUSH) 10 ML SYRINGE 5 ML IVF (20:52)
[2025-03-16 23:00] VITALS: O2SAT 95
[2025-03-16 23:44] VITALS: BP 140/79; PULSE 70; RESP 18; TEMP 36.4; O2SAT 94
[2025-03-17] VITALS (30 sets, daily range): BP systolic 103–161; BP diastolic 58–116; PULSE 55–90; RESP 8–16; TEMP 35.8–36.8; O2SAT 75–98
--- NOTE | 2025-03-17 | CRLHL7_ITS ---
For Patients: As a result of the Cures Act, medical imaging exams and procedure reports are released immediately into your electronic medical record. You may view this report before your referring provider. If you have questions, please contact your health care provider. Indication: Right bipolar hip ORIF Technique: AP hip fluoroscopic image. Fluoroscopy time 14.8 seconds. Findings/Impression: Hardware from a right bipolar hip arthroplasty is in satisfactory position. Dictated by Ricardo Solis MD @ 03/17/2025 3:31:21 PM (Electronically Signed)
[2025-03-17 06:38] LABS: Hematocrit 42.9 % (33.0-51.0); Hemoglobin* 13.8 gm/dL (12.0-16.0); Mean Corpuscular HGB Conc 32 gm/dL (32-36); Mean Corpuscular Hemoglobin 29 pg (26-34); Mean Corpuscular Volume 90 fL (80-100); Red Blood Count 4.76 m/uL (4.00-5.20); White Blood Count* 4.79 K/uL (4.50-11.00)
[2025-03-17 06:42] LABS: Slide Review Reflex No
[2025-03-17 06:48] LABS: Chloride* 106 mmol/L (96-114)
[2025-03-17 06:49] LABS: Potassium* 4.0 mmol/L (3.6-5.1); Sodium* 139 mmol/L (135-149)
[2025-03-17 06:52] LABS: Anion Gap 6 mEq/L (7-15); Blood Urea Nitrogen* 16 mg/dL (7-30); Calcium* 8.8 mg/dL (8.4-10.6); Carbon Dioxide* 27 mmol/L (20-32); Creatinine* 0.6 mg/dL (0.5-1.5); Est. Creatinine Clearance* 45.76; Estimated Glomerular Filt Rate 95 ml/min; Glucose* 94 mg/dL (60-115)
--- NOTE | 2025-03-17 07:20 | PC.NURSE ---
Arrived to find this patient alert but not completely oriented. Alzheimer's in medical history. Right hip area shows no bruising or swelling. CMS intact in all extremities. No pain from this area was reported but watching the patient shows that she favors the left leg. We are using a wheelchair to transfer the patient between bed and toilet. One episode of urinary incontinence overnight. Requesting to use the bathroom every hour or two and producing 25-50 ml of clear yellow urine each trip. Not able to remember how to use call light. She speaks articulately and is well adjusted to her memory loss. Appears to remember recent events, such as her hip breaking, but cannot remember things discussed with us jong. NPO at midnight for noon hip repair. Patient appeared in a stable state of health at time of transfer of care.?
--- NOTE | 2025-03-17 10:29 | CRLHL7_ITS ---
For Patients: As a result of the Century Cures Act, medical imaging exams and procedure reports are released immediately into your electronic medical record. You may view this report before your referring provider. If you have questions, please contact your health care provider. EXAM: CT OF THE RIGHT HIP, WITHOUT CONTRAST CLINICAL INDICATION: Femoral neck fracture. Fall this morning. COMPARISON STUDIES: 03/16/2025. TECHNICAL: Non-contrast CT of the pelvis with axial images. Sagittal oblique and coronal oblique reformatted images of the right hip created. FINDINGS: RIGHT HIP: Acute fracture of the right femoral neck. There is new lateral displacement of the femoral neck with mild anterior apical angulation which have developed since the prior radiograph. Findings called to the patient`s floor. Mild hypertrophic changes in the right hip joint. No hip joint effusion. OSSEOUS STRUCTURES: No additional fractures are evident. Benign bone island in the right ilium. No evidence for chronic avascular necrosis. OTHER JOINT SPACES: Left Hip: Mild degenerative changes. No joint effusion. SI Joints: Mild degenerative changes. No ankylosis. Lumbar Spine: Degenerative changes lower lumbar spine. MUSCLES AND TENDONS: No intramuscular mass or hematoma. No muscle atrophy. No retracted tendon tear. SOFT TISSUES: No subcutaneous edema, fluid collection or hematoma. INTRAPELVIC CONTENTS: No free fluid or hematoma. No inguinal hernia. Hysterectomy. NEUROVASCULAR STRUCTURES: No abnormality of the neurovascular structures. IMPRESSION: 1. Acute fracture of the right femoral neck with new displacement and anterior apical angulation. 2. Mild hypertrophic changes in the right hip joint. 3. Mild degenerative changes in the left hip, SI joints and lumbar spine. 4. Benign bone island in the right ilium. 5. Hysterectomy. Please note that all CT scans at this facility use dose modulation, iterative reconstruction, and/or weight-based dosing when appropriate to reduce radiation dose to as low as reasonably achievable. Dictated by Alex Pelayo MD @ 03/17/2025 11:26:08 AM (Electronically Signed)
--- NOTE | 2025-03-17 10:31 | PC.SOCIAL ---
Addendum entered by DAFNE Ayala 03/17/25 10:48: Discharge planning: The agency that provides PT/OT services at [facility] is Elaine Santillan and Sarah(DON at [facility]) would just need an order to say PT/OT eval and treat for those services to start at [facility] if that would be sufficient for the pt at discharge. Social work to follow-up as needed. Original Note: Discharge planning: compressed [employer] worker met with pt in her room to discuss early discharge planning. Pt states that she lives at [facility] across the street from the hospital with her . Pt states that she lives on the third floor in independent living, but does get help with meals three times a day, housekeeping and laundry. Pt's who has Parkinson's Disease lives on the first floor in the Memory Care unit. Pt states her does not have memory issues, but he lives in the Memory Care because they are able to provide him with more nursing support/services there. Pt states that she has received PT/OT services at [facility] before where they came and met with her at her apartment. Pt said she would be open to doing that again after discharge from the hospital, but is also open to going to a residential facility for short-term rehab if that is recommended. [employer] worker did provide the pt with a copy of [facility] list for her reference. Pt is having surgery today at 11:30am. Social work to follow-up as needed.
[2025-03-17] MEDS: MORPHINE 4 MG/ML INJ IVP ×3 (10:34→11:46)
[2025-03-17] MEDS: SODIUM CHLORIDE 0.9 % (FLUSH) 10 ML SYRINGE 5 ML IVF ×2 (10:34→20:24)
--- NOTE | 2025-03-17 11:37 | PM.IMPN1 ---
Assessment and Plan Assessment and plan (1) Femoral neck fracture: Problem comment: - Nondisplaced right femoral neck sub capital/transcervical fracture on imaging 03/16 - CT 03/17 (after fall): new lateral displacement of the femoral neck with mild anterior apical angulation which have developed since the prior radiograph - Dr. Holloway of Orthopedic Surgery following, surgical intervention 03/17/25 - physical therapy, occupational therapy, protective services social worker consulted for postoperative assistance/dispo planning Status: Acute (2) Fall: Problem comment: - baseline unsteady gait Status: Acute (3) Osteoporosis: Problem comment: - consider additional management efforts in outpatient setting status post current hospitalization Status: Acute (4) Alzheimer disease: Problem comment: - high risk for delirium in hospital. Discuss this with her son, Levi, who indicates that he and his family members will continue to be near their mother at this time to help orient her and that they will bring full dose to help in this regard as well. Continue with other supportive efforts. Status: Acute (5) Hypertension: Problem comment: - age appropriate control on Amlodipine Status: Acute (6) On hormone replacement therapy: Problem comment: - current guidelines do not require holding postoperatively if treating with appropriate postoperative ppx Status: Acute (7) Hypercholesterolemia: Problem comment: - on statin, will continue Status: Acute Plan - per above - sister updated bedside, reviewed plan of care with multidisciplinary team, Orthopedic Surgery Subjective Date Seen: 03/17/25 Interval history: Delfina was admitted to the hospital last night for a R femoral neck fracture, sustained during a fall while playing volleyball with her family last weekend. She is having surgery today with Dr. Holloway and team from Orthopedic Surgery. This morning, patient had a mechanical fall in her room; repeat imaging obtained which exhibited new lateral displacement with apical angulation. The orthopedic surgery team is aware of this new finding. Delfina is having some pain, no other concerns for hospitalist team. Sister is in room this morning and assists with history given patient's Alzheimer's diagnosis. Exam Narrative: Exam Narrative: GEN: Alert and awake in room HEENT: EOMIs bilaterally, no scleral icterus CV: RRR, No concerning murmurs R: LCTA bilaterally without concerning wheezing, air movement adequate Ext: wwp Skin: No concerning skin lesions or rashes on exposed skin Neuro: Nonfocal Psych: Appropriate, cognitive impairment is evident Const: Vital Signs, click to edit/add: Vital Signs - 24 hr 03/16/25 13:21 03/16/25 13:21 03/16/25 15:00 Temperature 98.1 F Pulse Rate [Pulse Oximeter] 66 Respiratory Rate 16 16 18 Blood Pressure [Ri ght Arm] 142/80 H Pulse Oximetry 99 99 94 Oxygen Delivery Me thod Room Air Room Air Room Air 03/16/25 15:00 03/16/25 19:35 03/16/25 23:00 Temperature 98.4 F 97.2 F L Pulse Rate [Pulse Oximeter] 74 74 Respiratory Rate 18 16 Blood Pressure [Ri ght Arm] 120/70 136/85 Pulse Oximetry 94 95 95 Oxygen Delivery Me thod Room Air Room Air Room Air 03/16/25 23:44 03/17/25 02:00 03/17/25 07:37 Temperature 97.6 F 98.0 F 97.8 F Pulse Rate [Pulse Oximeter] 70 75 74 Respiratory Rate 18 16 14 Blood Pressure [Ri ght Arm] 140/79 H 155/85 H 142/78 H Pulse Oximetry 94 91 97 Oxygen Delivery Me thod Room Air Room Air Room Air 03/17/25 07:54 Temperature Pulse Rate [Pulse Oximeter] Respiratory Rate 14 Blood Pressure [Ri ght Arm] Pulse Oximetry 97 Oxygen Delivery Me thod Room Air Labs Labs: Laboratory Results - last 24 hr 03/16/25 03/17/25 16:15 06:20 WBC 4.79 RBC 4.76 Hgb 13.8 Hct 42.9 MCV 90 MCH 29 MCHC 32 Plt Count 228 Sodium 139 Potassium 4.0 Chloride 106 Carbon Dioxide 27 Anion Gap 6 L BUN 16 Creatinine 0.6 Estimated Creat Clear 45.76 Estimated GFR 95 Glucose 94 Calcium 8.8 C-Reactive Protein 0.9 Urine Color Yellow Urine Appearance Clear Urine pH 6.5 Ur Specific [place] 1.020 Urine Protein Negative Urine Glucose (UA) Negative Urine Ketones Negative Urine Blood Negative Urine Nitrite Negative Urine Bilirubin Negative Urine Urobilinogen 0.2 Ur Leukocyte Esterase Negative Urine RBC 0-2 Urine WBC 0-2 Ur Squamous Epith Cells Few Urine Bacteria Few A
[2025-03-17] MEDS: LACTATED RINGERS 1000 ML 1,000 ML 75 ML IV ×2 (12:32→14:23)
--- NOTE | 2025-03-17 12:57 | P.ORCN_ITS ---
History of Present Illness HPI Date Seen: 03/16/25 Chief complaint: Fall, R hip injury Narrative: Dequan is a pleasant 74 year old female who is resides at [facility] in [place], [place], with underlying moderate to severe late onset Alzheimer's dementia. She presents with a 4-5 day history of right hip pain. She points to the right groin. Reportedly she was playing volleyball with her family this past weekend on vacation. It was on grass/uneven surface. She stumbled and landed onto her right hip. Difficulty bearing weight. She was able to walk and move it some, and her family simply thought she was ?milking it? as she was not expressing significant pain verbally. However, after multiple days of limited walking they ultimately sought medical care where x-rays were obtained and revealed a mildly impacted femoral neck fracture. She presented [facility] on 03/16/2025. There, repeat x-rays revealed again the mildly impacted right femoral neck fracture. She was admitted to the hospitalist team and Orthopedics was consulted to assist with further fracture care. Initially, decision was planned for a ORIF with lag screw and side plate. Unfortunately, the patient had a fall on 03/17/2025 here in the hospital after some family members had just left. Apparently the patient was trying to get up and obtain some slippers. This fall resulted in further injury to the right hip. Repeat imaging with a CT scan showed now displaced femoral neck fracture. [facility] Medical History Preventative health care ?Z00.00 - Encounter for general adult medical examination without abnormal findings (ICD-10) Hypertension ?I10 - Essential (primary) hypertension (ICD-10) Alzheimer disease ?G30.9 - Alzheimer's disease, unspecified (ICD-10) ?F02.80 - Dementia in other diseases classified elsewhere, unspecified severity, without behavioral disturbance, psychotic disturbance, mood disturbance, and anxiety (ICD-10) Osteoporosis ?M81.0 - Age-related osteoporosis without current pathological fracture (ICD- 10) Encounter for routine history and physical examination of adult ?Z00.00 - Encounter for general adult medical examination without abnormal findings (ICD-10) Encounter for annual wellness exam in Medicare patient ?Z00.00 - Encounter for general adult medical examination without abnormal findings (ICD-10) Need for prophylactic measure ?Z29.9 - Encounter for prophylactic measures, unspecified (ICD-10) Shingles ?B02.9 - Zoster without complications (ICD-10) Surgical History History of hysterectomy for benign disease ?Z90.710 - Acquired absence of both cervix and uterus (ICD-10) History of colonoscopy ?Z98.890 - Other specified postprocedural states (ICD-10) Family History Other Alzheimers disease Social History What is your current living situation?: I presently have a place to live Problems where you live: no known problems Problems where you live details: NA In the past 12 months, utilities in danger of being shut off: no In past 12 months, lack of transportation kept you from medical appts, meetings, work, or getting things needed for daily living: no In the past 12 mos, have been you worried that your food would run out before you had money to buy more?: never true In the past 12 mos, the food you bought just didn't last and you didn't have money to buy more?: never true Highest level of school completed/degree received: Master's degree Smoking Status: Never smoker Do you use any of these nicotine containing products: None Second hand tobacco smoke exposure: No How often do you have a drink containing alcohol: monthly or less AUDIT-C Alcohol total score: 1 Non-prescribed substance use: denies use Caffeine: Yes (coffee) How often does anyone, including family, friends and others, physically hurt you : never How often does anyone, including family, friends and others, insult or talk down to you: never How often does anyone, including family, friends and others, threaten you with harm: never How often does anyone, including family, friends and others, scream or curse at you: never service: No Meds Home Medications and Allergies Home Medications ?Medication ?Instructions ?Recorded ?Confirmed ?Type estradiol 0.5 mg tablet 0.5 mg PO DAILY #90 tabs 01/2903/16/25 Rx acetaminophen 325 mg tablet 650 mg PO Q4H PRN 03/16/25 03/16/25 History alendronate 70 mg tablet (Fosamax) 70 mg PO .QMONDAY 0 03/16/25 03/16/25 History amlodipine 5 mg tablet 5 mg PO DAILY 03/16/2503/16 History calcium ER 600 mg (as carb,cit)-D3 2 tab PO DAILY 03/0703/16/25 History 12.5 mcg (500 unit) tablet, ext.rel (Citracal-D3 Slow Release) donepezil 10 mg tablet (Aricept) 10 mg PO HS 03/16/25 03/16/25 History rosuvastatin 5 mg tablet 5 mg PO HS 03/16/25 03/16/25 History Allergies Allergy/AdvReac Type Severity Reaction Status Date / Time shellfish derived Allergy Severe swelling Verified 03/16/25 09:51 Ortho Exam Narrative Exam Narrative: Dequan and her family are well known to me as a community friend. Today she is alert and cooperative with my encounter. She is alert to place and person, but not time. Right hip exam shows pain with any rotation of the hip or motion of the knee. Neurologic intact distally in the superficial and deep peroneal as well as plantar distribution to sensory light touch and motor function. 2+ DP and PT pulse. No lacerations, abrasions, or other cutaneous changes about the right hip today. Left hip shows no pain with any range of motion actively or passively. Const Vital Signs, click to edit/add: Vital Signs - 24 hr 03/16/25 13:21 03/16/25 13:21 03/16/25 15:00 Temperature 98.1 F Pulse Rate [Pulse Oximeter] 66 Respiratory Rate 16 16 18 Blood Pressure [Right Arm] 142/80 H Pulse Oximetry 99 99 94 Oxygen Delivery Method Room Air Room Air Room Air 03/16/25 15:00 03/16/25 19:35 03/16/25 23:00 Temperature 98.4 F 97.2 F L Pulse Rate [Pulse Oximeter] 74 74 Respiratory Rate 18 16 Blood Pressure [Right Arm] 120/70 136/85 Pulse Oximetry 94 95 95 Oxygen Delivery Method Room Air Room Air Room Air 03/16/25 23:44 03/17/25 02:00 03/17/25 07:37 Temperature 97.6 F 98.0 F 97.8 F Pulse Rate [Pulse Oximeter] 70 75 74 Respiratory Rate 18 16 14 Blood Pressure [Right Arm] 140/79 H 155/85 H 142/78 H Pulse Oximetry 94 91 97 Oxygen Delivery Method Room Air Room Air Room Air 03/17/25 07:54 03/17/25 11:00 Temperature 98 F Pulse Rate [Pulse Oximeter] 83 Respiratory Rate 14 14 Blood Pressure [Right Arm] 154/90 H Pulse Oximetry 97 96 Oxygen Delivery Method Room Air Room Air Results Labs Labs: Laboratory Results - last 48 hr 03/16/25 03/16/25 03/17/25 10:21 16:15 06:20 WBC 6.20 4.79 RBC 4.46 4.76 Hgb 13.0 13.8 Hct 40.7 42.9 MCV 91 90 MCH 29 29 MCHC 32 32 RDW Coeff of [place] 13.1 Plt Count 240 228 Neut % (Auto) 72.0 Lymph % (Auto) 17.6 L [place] % (Auto) 7.7 Eos % (Auto) 2.1 Baso % (Auto) 0.3 Neut # (Auto) 4.46 Lymph # (Auto) 1.10 [place] # (Auto) 0.50 Eos # (Auto) 0.13 Baso # (Auto) 0.02 Abs Immat Gran (auto) 0.02 Imm/Tot Granulo (auto) 0.3 INR 0.99 Sodium 139 139 Potassium 3.9 4.0 Chloride 104 106 Carbon Dioxide 28 27 Anion Gap 7 6 L BUN 17 16 Creatinine 0.7 0.6 Estimated Creat Clear 47.34 45.76 Estimated GFR 92 95 Glucose 191 H 94 Calcium 8.8 8.8 C-Reactive Protein 0.9 Urine Color Yellow Urine Appearance Clear Urine pH 6.5 Ur Specific [place] 1.020 Urine Protein Negative Urine Glucose (UA) Negative Urine Ketones Negative Urine Blood Negative Urine Nitrite Negative Urine Bilirubin Negative Urine Urobilinogen 0.2 Ur Leukocyte Esterase Negative Urine RBC 0-2 Urine WBC 0-2 Ur Squamous Epith Cells Few Urine Bacteria Few A Diagnostic results Additional Comments: AP pelvis, AP and cross-table lateral radiographic views of the right hip from [facility] dated 03/16/2025 were ordered by a different provider and reviewed by me. This demonstrates a mildly impacted femoral neck neck fracture (subcapital) that is well aligned on both views. Well-preserved joint space otherwise. Moderate lumbar degenerative disc disease incidentally noted. CT scan of the pelvis/right hip from 03/17/2025 [facility] was ordered by different provider and reviewed by me. This also demonstrates a right femoral neck fracture but now this is displaced. The femur has slightly shortened and the head/neck is fallen into a varus angulation. Assessment and Plan Assessment and plan (1) Femoral neck fracture: Problem comment: - Nondisplaced right femoral neck sub capital/transcervical fracture on imaging 03/16 - CT 03/17 (after fall): new lateral displacement of the femoral neck with mild anterior apical angulation which have developed since the prior radiograph - Dr. Holloway of Orthopedic Surgery following, surgical intervention 03/17/25 - physical therapy, occupational therapy, clinical social work aide consulted for postoperative assistance/dispo planning Status: Acute Total time spent: Total time spent is greater than 50% in coordination of care (as documented) at patient's floor/unit and/or counseling patient: (2) Fall: Problem comment: - baseline unsteady gait Status: Acute Total time spent: Total time spent is greater than 50% in coordination of care (as documented) at patient's floor/unit and/or counseling patient: (3) Osteoporosis: Problem comment: - consider additional management efforts in outpatient setting status post current hospitalization Status: Acute Total time spent: Total time spent is greater than 50% in coordination of care (as documented) at patient's floor/unit and/or counseling patient: (4) Alzheimer disease: Problem comment: - high risk for delirium in hospital. Discuss this with her son, Levi, who indicates that he and his family members will continue to be near their mother at this time to help orient her and that they will bring full dose to help in this regard as well. Continue with other supportive efforts. Status: Acute Total time spent: Total time spent is greater than 50% in coordination of care (as documented) at patient's floor/unit and/or counseling patient: (5) Hypertension: Problem comment: - age appropriate control on Amlodipine Status: Acute Total time spent: Total time spent is greater than 50% in coordination of care (as documented) at patient's floor/unit and/or counseling patient: (6) On hormone replacement therapy: Problem comment: - current guidelines do not require holding postoperatively if treating with appropriate postoperative ppx Status: Acute Total time spent: Total time spent is greater than 50% in coordination of care (as documented) at patient's floor/unit and/or counseling patient: (7) Hypercholesterolemia: Problem comment: - on statin, will continue Status: Acute Total time spent: Total time spent is greater than 50% in coordination of care (as documented) at patient's floor/unit and/or counseling patient: Plan While initially this right femoral neck fracture was nondisplaced or minimally impacted, her subsequent injury has now resulted in a displaced right femoral neck fracture. Initially we felt like surgery was indicated to stabilize the right femoral neck fracture. Given the now displaced femoral neck, I do think surgery is still indicated but this specific surgery changes to a right hip bipolar hemiarthroplasty. I spoke with both the patient and her son, Levi ([id number]). I communicated the original planned last night on 03/16/2025 as well as the new plan on this 03/17/2025. As such, the plan will be for right hip bipolar hemiarthroplasty. We discussed the risks, benefits, and alternatives. I believe all questions were answered. This includes local risks (e.g. Infection, wound healing issues, [aseptic loosening, instability, fracture]) as well as systemic risks (e.g. VTE, NV, stroke). I have coordinated care with the hospitalist team as well as the anesthesia team. [place] surgery, would anticipate PT/OT consult for education and ambulation assistance as well social work consult for discharge planning.
--- NOTE | 2025-03-17 13:01 | PC.NURSE ---
[id number]: Pt. is pleasant and oriented to self and situation, but not her limitations. Short term memory impaired as evidenced by repetition of questions. Pt. sat up on edge of bed and was assisted back into Semi-Carreon's after assessment. Pt. BR with pivot to W/C to commode. Pt. sat up in chair. Pt. reported she needed to get up and put on her slippers' pt. was found on the floor in a seated position by medical staff. Assisted back to bed w/ assistance from 4 staff members. notified. Orders given for imaging. Pt. reported pain, pain meds given per MAR, and a verbalized improvement.
--- NOTE | 2025-03-17 13:09 | P.ANES_ITS ---
Anesthesia Charges Start Date/Time Anesthesia Start Date: 03/17/25 Anesthesia Start Time: 12:32 Stop Date/Time Anesthesia Stop Date: 03/17/25 Anesthesia Stop Time: 15:07 Summary Extremes of Age - Over 70 or under 1: MDA Coding CPT Codes CPT Codes: ANESTH SURGERY OF FEMUR - 18054 ([id number]) P2 - PATIENT W/MILD SYST DISEASE, QK - CASTING FINISHER 2-4 CNCRNT ANES PROC, QX - REMOTE SENSING SURVEYOR SVC W/ MD MED DIRECTION Additional Codes: Summary - Extremes of Age - Over 70 or under 1: MDA ([id number])
--- NOTE | 2025-03-17 13:09 | W.PM.NB ---
Nerve Block Nerve Block Time Seen by Provider: 12:45 Date Seen: 03/17/25 Type of block requested by surgeon for post-operative analgesia: ZARINA/LFCN Side: right Time out performed: Yes Verification of patient name: Yes Verification of date of : Yes Site marking: site marked Name of person performing procedure: Michael Continuous monitoring Was continuous monitoring of O2 sat, B/P, nuclear monitoring technician, recorded every 15 minutes?: Yes Procedure Checklist: sterile prep, needles and gloves Ultrasound guided. Images saved: Yes Medications given in 5ml increments after negative aspiration: Ropivicaine %: 0.5 mL: 30 Needle gauge: 20 Precedex (mcg): 25 Patient tolerated procedure well: Yes Additional comments: Needle noted below psoas tendon needle noted adjacent to LFCN Block Charges Block Charge (with Pro Fee): Other Periph Nerve Block Use of Ultrasound Machine for Block: Yes- US Guidance/pain block
--- NOTE | 2025-03-17 13:09 | W.ANESCHARGE ---
Anesthesia Charges Start Date/Time Anesthesia Start Date: 03/17/25 Anesthesia Start Time: 12:32 Stop Date/Time Anesthesia Stop Date: 03/17/25 Anesthesia Stop Time: 15:07 Summary Extremes of Age - Over 70 or under 1: MDA Coding CPT Codes CPT Codes: ANESTH SURGERY OF FEMUR - 50180 ([id number]) P2 - PATIENT W/MILD SYST DISEASE, QK - ASSEMBLER WATCH TRAIN 2-4 CNCRNT ANES PROC, QX - GENERAL LABOR FORKLIFT OPERATOR SVC W/ MD MED DIRECTION Additional Codes: Summary - Extremes of Age - Over 70 or under 1: MDA ([id number])
--- NOTE | 2025-03-17 14:28 | CRLHL7_ITS ---
For Patients: As a result of the Cures Act, medical imaging exams and procedure reports are released immediately into your electronic medical record. You may view this report before your referring provider. If you have questions, please contact your health care provider. Indication: Postop Technique: AP hip centered pelvis and lateral view right hip Findings/Impression: Hardware from a right bipolar hip arthroplasty is in satisfactory position. Bone alignment is normal. No sign of acute fracture. Postop changes are within normal limits. Dictated by Ricardo Solis MD @ 03/17/2025 4:07:23 PM (Electronically Signed)
--- NOTE | 2025-03-17 14:28 | PM.ORPRC ---
Procedure Note Date of procedure: 03/17/25 Procedure: PREOPERATIVE DIAGNOSIS: 1. Right femoral neck fracture, displaced POSTOPERATIVE DIAGNOSIS: 1. Right femoral neck fracture, displaced PROCEDURE: 1. Right hip bipolar hemiarthroplasty, anterior approach 2. 55474 - intraoperative fluoroscopy up to 1 hour. SURGEON: Benjamin Holloway MD. OFFICE SPECIALIST: Graham Lantigua PA-C; DARLENE Sands - Of note, a skilled project administrative assistant was critical for this case to aid in patient positioning, tissue retraction, limb manipulation/positioning, and closure. ANESTHESIA: Spinal anesthetic EBL: 300ml IMPLANTS: DePuy J&J uncemented right hip bipolar hemiarthroplasty Femoral Actis standard offset stem, size 6 Bipolar head with 28 mm inner diameter metal ball (+5) Polyethylene interface and 45 mm outer metal shell. COMPLICATIONS: None evident INDICATIONS: The patient is a pleasant 74-year-old female who initially sustained a right hip injury approximately 6 days ago while playing volleyball on a grass surface with her grandchildren. She sustained a fall from a standing height. Eventually found to have a mildly impacted subcapital femoral neck fracture. Unfortunately, while here in the hospital prepared for ORIF of this right femoral neck fracture, she had another fall resulting in displacement of femoral neck fracture. This prompted a change implants to a right hip bipolar hemiarthroplasty. FINDINGS: Displaced right femoral neck fracture, subcapital. Well-preserved articular cartilage within the acetabulum. Hemarthrosis encountered upon entering the joint capsule. DESCRIPTION OF PROCEDURE: Following a thorough discussion of risks, benefits, and alternatives consent was obtained and the right hip was marked. The patient was brought to the operating room and placed supine on the operating table. Induction of anesthesia was undertaken. 1 g IV Ancef and 1 g tranexamic acid was administered within 1 hr of incision preoperatively. Proper time-out was performed identifying proper patient, site, procedure. The operative extremity was prepped and draped in the appropriate sterile fashion using ChloraPrep after the patient was positioned on the Brule table with head in neutral alignment and all bony prominences well padded. C-arm fluoroscopic imaging was utilized to confirm proper pelvis rotation and position, and to get true AP films of both the contralateral left, and the affected right hip. This is for comparison. A longitudinal incision was made starting approximately 1 cm distal to the ASIS, and 3-4 cm lateral. The incision was extended distally aiming toward the lateral border the patella. Sharp incision through skin and bovie cautery through the subcutaneous tissue allowed identification of the TFL fascia. This was sharply divided, and the fascia bluntly released from the muscle fibers as we dissected medial. Upon coming to the medial border, we were able to retract the TFL laterally, and penetrated the deeper fascia and identify the crossing circumflex vessels. These were ligated/cauterized. The rectus was elevated from the capsule, and retractors placed laterally and medially along the femoral neck to help with visualization of the capsule. We then performed an inverted T capsulotomy. The capsule was tagged for later repair. Retractors were placed inside the capsule. The femoral neck was visualized after releasing medially down to the lesser trochanter, along the saddle laterally, and approaching the acetabulum. The femoral neck cut was freshened with a sagittal saw. The head was removed in a single piece, and sized. The acetabulum was inspected and found to be in excellent condition with healthy articular cartilage. Any remaining bony fracture fragments were removed. The ligamentum was excised. Attention was turned to the femoral preparation. The limb was extended, externally rotated, and adducted. The posteromedial capsule was released, as retractors were placed allowing excellent access to the proximal femur. Initially a box blank machine operator was followed by canal finder followed by various broaches. We broached sequentially up to the size noted above, found it to have excellent rotational control, and trialing various heads and necks, revealed that appropriate neck offset, and the above noted head size provided the greatest stability, and restorationism of length, and offset. C-arm fluoroscopic imaging confirmed position of the stem, as well as leg lengths, which were compared with the pre procedure all fluoroscopic images. Trial implants were removed, the real femoral stem inserted, as was the appropriate head. After reducing, the leg was placed through range of motion and stability was confirmed anterior, posterior, and lateral. Closure of the capsule was performed with #1 PDS. Bleeding was confirmed to be controlled at this stage, and the TFL fascia was closed with #0 strata fix. Subcutaneous, and subcuticular closure was performed with 2-0 Stratafix and 4-0 Stratafix, respectively. Dressings were applied, and the patient was awoken from anesthesia and transferred the PACU in stable condition. A skilled project administrative assistant was critical for this case to aid in patient positioning, tissue retraction, acetabular and proximal femoral exposure, limb manipulation/positioning, dislocation/relocation, patient safety, and closure. PLAN: 1. Weight bear as tolerated operative extremity. 2. 23 hr perioperative antibiotics. 3. Ice. 4. PT/OT consults for ambulation assistance/mobility education. 5. Social work consult for discharge planning. 6. DVT prophylaxis with at SCDs and Xarelto x5 days followed by aspirin for a total of 1 month..
--- NOTE | 2025-03-17 15:13 | P.ANES_ITS ---
Anesthesia Charges Start Date/Time Anesthesia Start Date: 03/17/25 Anesthesia Start Time: 12:32 Stop Date/Time Anesthesia Stop Date: 03/17/25 Anesthesia Stop Time: 15:07 Summary Extremes of Age - Over 70 or under 1: MOLD MAKING PLASTICS SHEETS SUPERVISOR Coding CPT Codes CPT Codes: ANESTH SURGERY OF FEMUR - 36958 ([id number]) P2 - PATIENT W/MILD SYST DISEASE, QK - ENTRY LEVEL RECEPTIONIST 2-4 CNCRNT ANES PROC, QX - MOLD MAKING PLASTICS SHEETS SUPERVISOR SVC W/ MD MED DIRECTION Additional Codes: Summary - Extremes of Age - Over 70 or under 1: MOLD MAKING PLASTICS SHEETS SUPERVISOR ([id number])
--- NOTE | 2025-03-17 15:13 | W.ANESCHARGE ---
Anesthesia Charges Start Date/Time Anesthesia Start Date: 03/17/25 Anesthesia Start Time: 12:32 Stop Date/Time Anesthesia Stop Date: 03/17/25 Anesthesia Stop Time: 15:07 Summary Extremes of Age - Over 70 or under 1: CELLULAR TOWER CLIMBER Coding CPT Codes CPT Codes: ANESTH SURGERY OF FEMUR - 85481 ([id number]) P2 - PATIENT W/MILD SYST DISEASE, QK - DIETICIAN 2-4 CNCRNT ANES PROC, QX - CELLULAR TOWER CLIMBER SVC W/ MD MED DIRECTION Additional Codes: Summary - Extremes of Age - Over 70 or under 1: CELLULAR TOWER CLIMBER ([id number])
[2025-03-17] MEDS: ONDANSETRON 2 MG/ML inj 4 MG IVP ×2 (15:49→20:17)
--- NOTE | 2025-03-17 16:13 | SUR.PHASEI ---
Pain meds in PACU fentanyl x3 doses, Dilaudid x1 dose, Zofran x1. Total IVF 400. Pt started to say she was getting nauseous right before entering MS unit, INTERIOR WIRER and RN turned pt to side. Pt no longer complaining of nausea after settling pt in room. Pt tearful and pleasantly confused during PACU stay
[2025-03-17] MEDS: PROCHLORPERAZINE 5 MG/ML VIAL IV (16:55)
--- NOTE | 2025-03-17 18:30 | PC.NURSE ---
Addendum entered by Rachel Valentin RN 03/17/25 19:20: @ 1900: Pt. up to bedside commode with X2 assist. Amb gait belt and walker. Tolerated well on RA Pt reports nausea with movement. Tolerating fluids. Up in chair. Bed alarm on. Call light w/ i reach. Original Note: [id number]: Pt. is alert to self. VSS. Abefrile. Pt. up to floor at 16:03. Pt. c/o nausea. LSC. Dressing to R hip CDI. Active ice to opt site. Pt. weeping and anxious upon arrival to floor. Disoriented to situation, family supportive at bedside. Started on O2 to keep O2 above 92%. Pt. currently at 1L NC sating at 98%. Pt. sleeping comfortably. Bed alarm on, call light w/i reach.
[2025-03-17] MEDS: CEFAZOLIN 1 GM in 0.9 % SODIUM CHLORIDE Mini-bag 100 ML IVPB (18:50)
[2025-03-17] MEDS: ACETAMINOPHEN 325 MG TABLET 650 MG PO (20:23)
[2025-03-17] MEDS: DONEPEZIL 10 MG TABLET PO (20:24)
[2025-03-18] VITALS (8 sets, daily range): BP systolic 130–148; BP diastolic 73–84; PULSE 86–104; RESP 14–16; TEMP 36.7–37.6; O2SAT 94–98
[2025-03-18] MEDS: CEFAZOLIN 1 GM in 0.9 % SODIUM CHLORIDE Mini-bag 100 ML IVPB (02:43)
--- NOTE | 2025-03-18 05:55 | PC.NURSE ---
Alert to to self but becoming more aware of surrounds as night continued. dressing to hip c/d/i. intermittent ice to site. +cms. reporting 0-4/10 hip pain. see eMAR for interventions. x1 emesis at the beginning of shift. treated with prn zofran. denies any other n/v the rest of shift. up w/ A1 walker and gb. tolerating well. pt not using call light. bed alarm in place.
--- NOTE | 2025-03-18 07:08 | P.IMPN_ITS ---
Assessment and Plan Assessment and plan (1) Femoral neck fracture: Problem comment: - Day 1 s/p right hip bipolar hemiarthroplasty, anterior approach. DOS: 03/17/25, Dr. Holloway Status: Acute (2) Fall: Problem comment: - baseline unsteady gait, therapies following Status: Acute (3) Osteoporosis: Problem comment: - consider additional management efforts in outpatient setting status post current hospitalization Status: Acute (4) Alzheimer disease: Problem comment: - high risk for delirium in hospital. Discuss this with her son, Levi, who indicates that he and his family members will continue to be near their mother at this time to help orient her and that they will bring full dose to help in this regard as well. Continue with other supportive efforts. - increased risk of impulsivity as well Status: Acute (5) Hypertension: Problem comment: - age appropriate control on Amlodipine Status: Acute (6) On hormone replacement therapy: Problem comment: - current guidelines do not require holding postoperatively if treating with appropriate postoperative ppx, has been started on Xarelto Status: Acute (7) Hypercholesterolemia: Problem comment: - on statin, will continue Status: Acute Plan - therapies - Follow white blood count given leukocytosis on 03/18 - SNF vs home to [facility] with additional assistance, pending therapy evaluations - requires continued inpatient management given Alzheimer's disease and impulsivity, leukocytosis, further therapy evaluations Subjective Date Seen: 03/18/25 Interval history: Delfina was admitted to the hospital on 03/16 for a R femoral neck fracture, sustained during a fall while playing volleyball with her family approximately 5 days before presentation. She is POD #1 from a R hip bipolar hemiarthroplasty, anterior approach, with Dr. Holloway of Orthopedic Surgery. Starting therapies today. No concerns for hospitalist team. This morning, her hemoglobin is stable. She does have an elevation in her white count, received cefazolin. No fever, vital signs stable. Exam Narrative: Exam Narrative: GEN: Alert and sitting comfortably in bedside chair having breakfast HEENT: Normal external ears, EOMIs bilaterally, no scleral icterus CV: RRR, No concerning murmurs R: LCTA bilaterally without concerning wheezing Ext: wwp, no concerning edema Skin: No concerning skin lesions or rashes on exposed skin Neuro: No focal deficits Psych: Cognitive impairment is evident, no agitation Const: Vital Signs, click to edit/add: Vital Signs - 24 hr 03/17/25 07:37 03/17/25 07:54 03/17/25 11:00 Temperature 97.8 F 98 F Pulse Rate Pulse Rate [Pulse Oximeter] 74 83 Respiratory Rate 14 14 14 Blood Pressure Blood Pressure [Ri ght Arm] 142/78 H 154/90 H Pulse Oximetry 97 97 96 Oxygen Delivery Me thod Room Air Room Air Room Air Oxygen Flow Rate 03/17/25 15:00 03/17/25 15:00 03/17/25 15:00 Temperature 97.5 F L Pulse Rate Pulse Rate [Pulse Oximeter] Respiratory Rate 15 15 15 Blood Pressure Blood Pressure [Ri ght Arm] Pulse Oximetry 96 96 Oxygen Delivery Me thod Room Air Room Air Oxygen Flow Rate 03/17/25 15:02 03/17/25 15:05 03/17/25 15:10 Temperature 97.3 F L Pulse Rate 90 90 88 Pulse Rate [Pulse Oximeter] Respiratory Rate 16 10 L 12 Blood Pressure 133/90 H 153/110 H 152/101 H Blood Pressure [Ri ght Arm] Pulse Oximetry 94 94 95 Oxygen Delivery Me thod Oxygen Flow Rate 03/17/25 15:15 03/17/25 15:20 03/17/25 15:25 Temperature Pulse Rate 77 84 82 Pulse Rate [Pulse Oximeter] Respiratory Rate 9 L 13 15 Blood Pressure 161/97 H 150/94 H 151/98 H Blood Pressure [Ri ght Arm] Pulse Oximetry 95 94 95 Oxygen Delivery Me thod Oxygen Flow Rate 03/17/25 15:30 03/17/25 15:35 03/17/25 15:40 Temperature Pulse Rate 81 86 78 Pulse Rate [Pulse Oximeter] Respiratory Rate 13 14 13 Blood Pressure 155/91 H 151/86 H 157/83 H Blood Pressure [Ri ght Arm] Pulse Oximetry 95 95 95 Oxygen Delivery Me thod Oxygen Flow Rate 03/17/25 15:45 03/17/25 15:50 03/17/25 15:55 Temperature 97.5 F L Pulse Rate 89 70 70 Pulse Rate [Pulse Oximeter] Respiratory Rate 16 13 15 Blood Pressure 159/89 H 142/88 H 145/81 H Blood Pressure [Ri ght Arm] Pulse Oximetry 94 94 96 Oxygen Delivery Me thod Oxygen Flow Rate 03/17/25 16:03 03/17/25 16:15 03/17/25 16:30 Temperature 97.1 F L 97.1 F L 97.4 F L Pulse Rate Pulse Rate [Pulse Oximeter] 74 63 65 Respiratory Rate 14 14 14 Blood Pressure Blood Pressure [Ri ght Arm] 142/66 H 133/65 139/77 Pulse Oximetry 96 96 96 Oxygen Delivery Me thod Room Air Room Air Room Air Oxygen Flow Rate 03/17/25 16:45 03/17/25 17:00 03/17/25 17:15 Temperature 97.1 F L 96.9 F L 96.5 F L Pulse Rate Pulse Rate [Pulse Oximeter] 76 78 55 L Respiratory Rate 16 14 8 L Blood Pressure Blood Pressure [Ri ght Arm] 142/116 H 129/75 103/58 L Pulse Oximetry 96 91 75 L Oxygen Delivery Me thod Room Air Room Air Room Air Oxygen Flow Rate 03/17/25 17:30 03/17/25 18:00 03/17/25 19:00 Temperature 96.5 F L 97.6 F Pulse Rate Pulse Rate [Pulse Oximeter] 62 71 75 Respiratory Rate 12 16 14 Blood Pressure Blood Pressure [Ri ght Arm] 104/64 117/59 L 142/83 H Pulse Oximetry 98 98 Oxygen Delivery Me thod Nasal Cannula Nasal Cannula Oxygen Flow Rate 2.5 2.5 03/17/25 20:00 03/17/25 21:00 03/17/25 22:57 Temperature 98.2 F 98.2 F Pulse Rate Pulse Rate [Pulse Oximeter] 68 82 64 Respiratory Rate 14 14 16 Blood Pressure Blood Pressure [Ri ght Arm] 116/59 L 112/66 109/65 Pulse Oximetry 94 96 93 Oxygen Delivery Me thod Room Air Oxygen Flow Rate 03/17/25 22:59 03/18/25 02:45 Temperature 98.1 F Pulse Rate Pulse Rate [Pulse Oximeter] 86 Respiratory Rate 16 16 Blood Pressure Blood Pressure [Ri ght Arm] 135/74 Pulse Oximetry 93 94 Oxygen Delivery Me thod Room Air Room Air Oxygen Flow Rate 2.5
[2025-03-18 07:17] LABS: Hematocrit 41.1 % (33.0-51.0); Hemoglobin* 13.4 gm/dL (12.0-16.0); Immature Granulocytes Pct Auto 0.3 %; Mean Corpuscular HGB Conc 33 gm/dL (32-36); Mean Corpuscular Hemoglobin 29 pg (26-34); Mean Corpuscular Volume 90 fL (80-100); RDW Coefficient of Variation % 13.0 % (11.5-15.5); Red Blood Count 4.58 m/uL (4.00-5.20); White Blood Count* 15.44 K/uL (4.50-11.00)
[2025-03-18 07:18] LABS: Immature Granulocytes Abs Auto 0.00 K/uL (0.00-0.30); Lymphocytes Absolute Auto 0.60 K/uL (0.90-2.90); Slide Review Reflex No
[2025-03-18 07:33] LABS: Chloride* 102 mmol/L (96-114); Potassium* 4.1 mmol/L (3.6-5.1); Sodium* 137 mmol/L (135-149)
[2025-03-18 07:36] LABS: Anion Gap 8 mEq/L (7-15); Blood Urea Nitrogen* 14 mg/dL (7-30); Calcium* 8.6 mg/dL (8.4-10.6); Carbon Dioxide* 27 mmol/L (20-32); Creatinine* 0.6 mg/dL (0.5-1.5); Est. Creatinine Clearance* 45.76; Estimated Glomerular Filt Rate 95 ml/min; Glucose* 130 mg/dL (60-115)
[2025-03-18] MEDS: ACETAMINOPHEN 325 MG TABLET 650 MG PO ×3 (08:32→20:38)
[2025-03-18] MEDS: RIVAROXABAN 10 MG TABLET PO (08:36)
[2025-03-18] MEDS: SODIUM CHLORIDE 0.9 % (FLUSH) 10 ML SYRINGE 5 ML IVF ×2 (09:14→20:39)
--- NOTE | 2025-03-18 10:28 | P.ORPN_ITS ---
Subjective Subjective Time Seen by Provider: 10:00 Date Seen: 03/18/25 Principal diagnosis: Day 1 s/p right hip bipolar hemiarthroplasty, anterior approach Interval history: Delfina is doing well this morning. Her sister, Kay, is present during our visit. I was able to observe Delfina ambulating to the restroom this morning with her nurse. She is fully weightbearing with her gait belt, staff assist and her walker without right hip pain. She reports her pain is well managed with Tylenol and Oxycodone PRN. Denies postop chest pain, SOB, fever, chills, nausea, vomiting and numbness/tingling distally. No acute events overnight. Patient re sides at [facility] and is eager to be discharged. Kay reports Delfina has been getting up without her walker and without notifying staff like she has been asked to do. Recliner pressure alarm system is activated. Ortho Exam Narrative Exam Narrative: Incision/Dressing: Dressing appears clean and dry. No drainage present. Mepilex intact. Right hip appears moderately swollen but supple with no obvious erythema, fluctuance or excessive warmth. No ecchymosis or erythematous streaking. Warmth around the wound is appropriate. Ice is being utilized as needed. Sensation confirmed surrounding dressing. CMS: Intact distally with 2+ Dorsalis pedis and Posterior Tibial pulses. 5/5 motor strength dorsal and plantar flexion. Confirmed sensation distally. Calf: Bilateral calves are supple, with no swelling, pain, tenderness, erythema, discoloration or coolness to the touch. Constitutional: Patient is alert and oriented x3. Patient is in no acute distress and converses without labored breathing. Patient is pleasant and cooperative. Affect is full range and appropriate for the circumstances. Const Vital Signs, click to edit/add: Vital Signs - 24 hr 03/17/25 11:00 03/17/25 15:00 03/17/25 15:00 Temperature 98 F Pulse Rate Pulse Rate [Pulse Oximeter] 83 Respiratory Rate 14 15 15 Blood Pressure Blood Pressure [Right Arm] 154/90 H Pulse Oximetry 96 96 Oxygen Delivery Method Room Air Room Air Oxygen Flow Rate 03/17/25 15:00 03/17/25 15:02 03/17/25 15:05 Temperature 97.5 F L 97.3 F L Pulse Rate 90 90 Pulse Rate [Pulse Oximeter] Respiratory Rate 15 16 10 L Blood Pressure 133/90 H 153/110 H Blood Pressure [Right Arm] Pulse Oximetry 96 94 94 Oxygen Delivery Method Room Air Oxygen Flow Rate 03/17/25 15:10 03/17/25 15:15 03/17/25 15:20 Temperature Pulse Rate 88 77 84 Pulse Rate [Pulse Oximeter] Respiratory Rate 12 9 L 13 Blood Pressure 152/101 H 161/97 H 150/94 H Blood Pressure [Right Arm] Pulse Oximetry 95 95 94 Oxygen Delivery Method Oxygen Flow Rate 03/17/25 15:25 03/17/25 15:30 03/17/25 15:35 Temperature Pulse Rate 82 81 86 Pulse Rate [Pulse Oximeter] Respiratory Rate 15 13 14 Blood Pressure 151/98 H 155/91 H 151/86 H Blood Pressure [Right Arm] Pulse Oximetry 95 95 95 Oxygen Delivery Method Oxygen Flow Rate 03/17/25 15:40 03/17/25 15:45 03/17/25 15:50 Temperature 97.5 F L Pulse Rate 78 89 70 Pulse Rate [Pulse Oximeter] Respiratory Rate 13 16 13 Blood Pressure 157/83 H 159/89 H 142/88 H Blood Pressure [Right Arm] Pulse Oximetry 95 94 94 Oxygen Delivery Method Oxygen Flow Rate 03/17/25 15:55 03/17/25 16:03 03/17/25 16:15 Temperature 97.1 F L 97.1 F L Pulse Rate 70 Pulse Rate [Pulse Oximeter] 74 63 Respiratory Rate 15 14 14 Blood Pressure 145/81 H Blood Pressure [Right Arm] 142/66 H 133/65 Pulse Oximetry 96 96 96 Oxygen Delivery Method Room Air Room Air Oxygen Flow Rate 03/17/25 16:30 03/17/25 16:45 03/17/25 17:00 Temperature 97.4 F L 97.1 F L 96.9 F L Pulse Rate Pulse Rate [Pulse Oximeter] 65 76 78 Respiratory Rate 14 16 14 Blood Pressure Blood Pressure [Right Arm] 139/77 142/116 H 129/75 Pulse Oximetry 96 96 91 Oxygen Delivery Method Room Air Room Air Room Air Oxygen Flow Rate 03/17/25 17:15 03/17/25 17:30 03/17/25 18:00 Temperature 96.5 F L 96.5 F L 97.6 F Pulse Rate Pulse Rate [Pulse Oximeter] 55 L 62 71 Respiratory Rate 8 L 12 16 Blood Pressure Blood Pressure [Right Arm] 103/58 L 104/64 117/59 L Pulse Oximetry 75 L 98 98 Oxygen Delivery Method Room Air Nasal Cannula Nasal Cannula Oxygen Flow Rate 2.5 2.5 03/17/25 19:00 03/17/25 20:00 03/17/25 21:00 Temperature 98.2 F Pulse Rate Pulse Rate [Pulse Oximeter] 75 68 82 Respiratory Rate 14 14 14 Blood Pressure Blood Pressure [Right Arm] 142/83 H 116/59 L 112/66 Pulse Oximetry 94 96 Oxygen Delivery Method Oxygen Flow Rate 03/17/25 22:57 03/17/25 22:59 03/18/25 02:45 Temperature 98.2 F 98.1 F Pulse Rate Pulse Rate [Pulse Oximeter] 64 86 Respiratory Rate 16 16 16 Blood Pressure Blood Pressure [Right Arm] 109/65 135/74 Pulse Oximetry 93 93 94 Oxygen Delivery Method Room Air Room Air Room Air Oxygen Flow Rate 2.5 03/18/25 07:00 03/18/25 07:00 Temperature 99.6 F Pulse Rate Pulse Rate [Pulse Oximeter] 87 Respiratory Rate 14 Blood Pressure Blood Pressure [Right Arm] 148/75 H Pulse Oximetry 95 95 Oxygen Delivery Method Room Air Room Air Oxygen Flow Rate Assessment and Plan Assessment and plan (1) Femoral neck fracture: Problem details: Day 1 s/p right hip bipolar hemiarthroplasty, anterior approach. DOS: 03/17/25, Dr. Holloawy Status: Acute Assessment and Plan: - Mepilex dressing to remain in place x 7-10 days. Dressing is waterproof. May shower. Remove dressing sooner if it becomes saturated. - Weight bear as tolerated with walker for assistance. - For pain management, recommend ice, elevation, Tylenol and Oxycodone PRN. ? - For DVT prophylaxis: Xarelto 10 mg daily x 5 days followed by aspirin 81 mg BID x 25 days. Also recommend ankle pumps when sedentary and frequent am bulation. - Social consult for discharge planning. Discharge date and location TBD. I anticipate Delfina will require SNF/Rehab upon discharge. Nursing staff at this facility may contact our Orthopedic clinic with any wound related concerns upon dressing removal. - Patient will f/u with Graham Lantigua PA-C in 10-14 days for wound check. - Patient will f/u with Dr. Holloway at 6 weeks postop. - Notify Orthopedics with any questions or concerns. ([phone])
--- NOTE | 2025-03-18 18:55 | PC.NURSE ---
[id number]: Pt. is oriented to self, not oriented to ability or situation. VSS. Lung sounds clear bilaterally. Needs redirection and verbal direction when repositioning and ambulating. Family has been in and out visiting and supportive. Pt. up and ambulating w/ 1 assist , GB and walker. pt. prefers to wear her tennis shoes when up and moving. walked the hallway x1. Pt. consumed 100% of chocolate Ensure. Encourage fluids and nutritional intake. R hip dressing CDI. Ice applied. HS cares done by MARY ELLEN. Pt. resting in bed, call light w/ i reach. Bed alarm on.
[2025-03-18] MEDS: DONEPEZIL 10 MG TABLET PO (20:39)
--- NOTE | 2025-03-18 23:30 | PC.NURSE ---
Patient alert with forgetfulness. Oriented to person. Unable to communicate needs. Bed alarm in use all shift. Ambulates with Ax1 with walker and gait belt. Surgical site dressing intact with no drainage noted. Vital signs stable.
[2025-03-19] VITALS (8 sets, daily range): BP systolic 111–135; BP diastolic 67–84; PULSE 82–99; RESP 12–16; TEMP 36.7–37.6; O2SAT 93–96
--- NOTE | 2025-03-19 05:46 | PC.NURSE ---
23-07: pleasantly confused. Ax1 with gb and walker. Right hip pain 6/10, orn oxy given x 2. active ice to hip, dressing CDI. VSS.
[2025-03-19 06:40] LABS: Hematocrit 40.4 % (33.0-51.0); Hemoglobin* 13.0 gm/dL (12.0-16.0); Immature Granulocytes Pct Auto 1.2 %; Mean Corpuscular HGB Conc 32 gm/dL (32-36); Mean Corpuscular Hemoglobin 29 pg (26-34); Mean Corpuscular Volume 90 fL (80-100); RDW Coefficient of Variation % 13.5 % (11.5-15.5); Red Blood Count 4.47 m/uL (4.00-5.20); White Blood Count* 12.15 K/uL (4.50-11.00)
[2025-03-19 07:00] LABS: Immature Granulocytes Abs Auto 0.10 K/uL (0.00-0.30); Lymphocytes Absolute Auto 1.40 K/uL (0.90-2.90); Slide Review Reflex No
[2025-03-19 07:05] LABS: Chloride* 101 mmol/L (96-114); Potassium* 3.9 mmol/L (3.6-5.1); Sodium* 135 mmol/L (135-149)
[2025-03-19 07:08] LABS: Anion Gap 4 mEq/L (7-15); Blood Urea Nitrogen* 17 mg/dL (7-30); Calcium* 8.5 mg/dL (8.4-10.6); Carbon Dioxide* 30 mmol/L (20-32); Creatinine* 0.7 mg/dL (0.5-1.5); Est. Creatinine Clearance* 45.76; Estimated Glomerular Filt Rate 92 ml/min; Glucose* 108 mg/dL (60-115)
[2025-03-19] MEDS: ACETAMINOPHEN 325 MG TABLET 650 MG PO ×3 (08:36→18:40)
[2025-03-19] MEDS: RIVAROXABAN 10 MG TABLET PO (08:36)
[2025-03-19] MEDS: SODIUM CHLORIDE 0.9 % (FLUSH) 10 ML SYRINGE 5 ML IVF (08:37)
--- NOTE | 2025-03-19 11:51 | P.IMPN_ITS ---
Assessment and Plan Assessment and plan (1) Femoral neck fracture: Problem comment: - Day 2 s/p right hip bipolar hemiarthroplasty, anterior approach. DOS: 03/17/25, Dr. Holloway Status: Acute (2) Fall: Problem comment: - while playing volleyball with family; baseline unsteady gait, therapies following Status: Acute (3) Osteoporosis: Problem comment: - consider additional management efforts in outpatient setting status post current hospitalization Status: Acute (4) Alzheimer disease: Problem comment: - high risk for delirium in hospital. Discuss this with her son, Levi, who indicates that he and his family members will continue to be near their mother at this time to help orient her and that they will bring full dose to help in this regard as well. Continue with other supportive efforts. - increased risk of impulsivity as well Status: Acute (5) Hypertension: Problem comment: - age appropriate control on Amlodipine Status: Acute (6) On hormone replacement therapy: Problem comment: - current guidelines do not require holding postoperatively if treating with appropriate postoperative ppx, has been started on Xarelto Status: Acute (7) Hypercholesterolemia: Problem comment: - on statin, will continue Status: Acute Plan - per above - likely d/c to TCU in the next 1-2 days Subjective Date Seen: 03/19/25 Interval history: Delfina was admitted to the hospital on 03/16 for a R femoral neck fracture, sustained during a fall while playing volleyball with her family approximately 5 days before presentation. She is POD #2 from a R hip bipolar hemiarthroplasty, anterior approach, with Dr. Holloway of Orthopedic Surgery on 03/17. Working with therapies, currently TCU recommended. Hgb stable, leukocytosis improving, mildly elevated temperature but no fever, received Ancef intra and postoperatively. On Xarelto for ppx. Delfina has no concerns for hospitalist team today. Exam Narrative: Exam Narrative: GEN: Alert and sitting comfortably in bed HEENT: Normal external ears, EOMIs bilaterally, no scleral icterus CV: RRR, No concerning murmurs R: LCTA bilaterally without concerning wheezing Ext: wwp, no concerning edema Skin: No concerning skin lesions or rashes on exposed skin, dressing over R hip incision is clean and dry Neuro: No focal deficits or resting tremor Psych: Cognitive impairment is evident, no agitation Const: Vital Signs, click to edit/add: Vital Signs - 24 hr 03/18/25 15:00 03/18/25 15:00 03/18/25 19:00 Temperature 98.6 F 99.2 F Pulse Rate [Pulse Oximeter] 92 104 H Respiratory Rate 14 14 16 Blood Pressure [Ri ght Arm] 145/84 H 147/82 H Pulse Oximetry 97 98 94 Oxygen Delivery Me thod Room Air Room Air Room Air 03/18/25 20:38 03/18/25 22:35 03/18/25 22:36 Temperature 99.2 F 98.4 F Pulse Rate [Pulse Oximeter] 88 Respiratory Rate 16 16 Blood Pressure [Ri ght Arm] 130/73 Pulse Oximetry 94 94 Oxygen Delivery Me thod Room Air Room Air 03/18/25 23:00 03/19/25 05:00 03/19/25 07:00 Temperature 99.5 F Pulse Rate [Pulse Oximeter] 92 99 Respiratory Rate 16 16 Blood Pressure [Ri ght Arm] 135/84 Pulse Oximetry 94 Oxygen Delivery Me thod Room Air 03/19/25 07:00 03/19/25 08:32 Temperature 99.6 F Pulse Rate [Pulse Oximeter] 99 Respiratory Rate 16 Blood Pressure [Ri ght Arm] 111/77 Pulse Oximetry 93 93 Oxygen Delivery Me thod Room Air Labs Labs: Laboratory Results - last 24 hr 03/19/25 05:37 WBC 12.15 H RBC 4.47 Hgb 13.0 Hct 40.4 MCV 90 MCH 29 MCHC 32 RDW Coeff of Elizabeth 13.5 Plt Count 261 Neut % (Auto) 77.5 H Lymph % (Auto) 11.7 L [place] % (Auto) 9.3 Eos % (Auto) 0.2 Baso % (Auto) 0.1 Neut # (Auto) 9.40 H Lymph # (Auto) 1.40 [place] # (Auto) 1.10 H Eos # (Auto) 0.00 Baso # (Auto) 0.00 Abs Immat Gran (auto) 0.10 Imm/Tot Granulo (auto) 1.2 Sodium 135 Potassium 3.9 Chloride 101 Carbon Dioxide 30 Anion Gap 4 L BUN 17 Creatinine 0.7 Estimated Creat Clear 45.76 Estimated GFR 92 Glucose 108 Calcium 8.5
[2025-03-19] MEDS: SENNOSIDES/DOCUSATE TABLET 1 TAB PO (13:07)
--- NOTE | 2025-03-19 13:57 | PC.NURSE ---
[id number]: Pt. alert and oriented to self. Pt. requires reorientation and reminding that she had surgery. Moving well w/ 1 assist. Pain meds as scheduled and PRN per the MAR. Tolerating regular diet; no BM since sx. Pt. worked with PT and OT. Pt. ate lunch up in the chair. Pt. is currently resting in bed comfortably; call light w/i reach. Bed alarm on.
[2025-03-19] MEDS: ONDANSETRON ODT 4 MG TAB PO (17:55)
[2025-03-19] MEDS: DONEPEZIL 10 MG TABLET PO (20:34)
[2025-03-20] VITALS (9 sets, daily range): BP systolic 102–140; BP diastolic 57–83; PULSE 78–99; RESP 16–18; TEMP 36.7–37.1; O2SAT 93–97
[2025-03-20] MEDS: ACETAMINOPHEN 325 MG TABLET 650 MG PO ×5 (00:10→21:25)
[2025-03-20] MEDS: DOCUSATE SODIUM 100 MG CAPSULE PO (04:52)
[2025-03-20] MEDS: SENNOSIDES/DOCUSATE TABLET 1 TAB PO ×2 (04:52→21:25)
--- NOTE | 2025-03-20 06:39 | PC.NURSE ---
The patient is noted to be pleasantly confused. VSS on RA, pain is well controlled with scheduled tylenol and PRN pain medication given 1x overnight. Up to the bathroom frequently throughout the night to void. Call light within reach, the patient does set off the alarms at times. Shona MORAN BSN
[2025-03-20] MEDS: RIVAROXABAN 10 MG TABLET PO (08:40)
[2025-03-20] MEDS: SODIUM CHLORIDE 0.9 % (FLUSH) 10 ML SYRINGE 5 ML IVF (08:52)
--- NOTE | 2025-03-20 13:07 | PM.IMPN1 ---
Assessment and Plan Assessment and plan (1) Femoral neck fracture: Problem comment: - Day 3 s/p right hip bipolar hemiarthroplasty, anterior approach. DOS: 03/17/25, Dr. Holloway - working with therapies, SNF recommended Status: Acute (2) Fall: Problem comment: - while playing volleyball with family; baseline unsteady gait, therapies following Status: Acute (3) Osteoporosis: Problem comment: - consider additional management efforts in outpatient setting status post current hospitalization Status: Acute (4) Alzheimer disease: Problem comment: - high risk for delirium in hospital. Discussed on admission with sonLevi, who indicates that he and his family members will continue to be near their mother at this time to help orient her and that they will bring full dose to help in this regard as well. Continue with other supportive efforts. - increased risk of impulsivity as well Status: Acute (5) Hypertension: Problem comment: - age appropriate control on Amlodipine Status: Acute (6) On hormone replacement therapy: Problem comment: - current guidelines do not require holding postoperatively if treating with appropriate postoperative ppx, has been started on Xarelto Status: Acute (7) Hypercholesterolemia: Problem comment: - on statin, will continue Status: Acute Plan - per above, awaiting placement Subjective Date Seen: 03/20/25 Interval history: Delfina was admitted to the hospital on 03/16 for a R femoral neck fracture, sustained during a fall while playing volleyball with her family approximately 5 days before presentation. She is POD #3 from a R hip bipolar hemiarthroplasty, anterior approach, with Dr. Holloway of Orthopedic Surgery on 03/17. Working with therapies, currently TCU recommended, awaiting placement. Hgb stable, leukocytosis improving, mildly elevated temperature but no fever, received Ancef intra and postoperatively. On Xarelto for ppx. Delfina has no concerns for hospitalist team today. Exam Narrative: Exam Narrative: GEN: Alert and sitting comfortably in bed HEENT: Normal external ears, EOMIs bilaterally, no scleral icterus CV: RRR, No concerning murmurs R: Breathing comfortably, no wheezing Ext: wwp, no concerning edema Skin: No concerning skin lesions or rashes on exposed skin, dressing over R hip incision is clean and dry Neuro: No focal deficits or resting tremor Psych: Mild cognitive impairment is evident, no agitation Const: Vital Signs, click to edit/add: Vital Signs - 24 hr 03/19/25 15:00 03/19/25 15:00 03/19/25 16:00 Temperature 98.1 F Pulse Rate [Pulse Oximeter] 95 86 Respiratory Rate 16 16 16 Blood Pressure [Ri ght Arm] 115/67 Pulse Oximetry 95 95 Oxygen Delivery Me thod Room Air Room Air 03/19/25 20:00 03/19/25 23:00 03/20/25 00:00 Temperature 98.0 F 98.0 F Pulse Rate [Pulse Oximeter] 82 99 Respiratory Rate 16 18 Blood Pressure [Ri ght Arm] 130/77 140/83 H Pulse Oximetry 96 93 93 Oxygen Delivery Me thod Room Air Room Air Room Air 03/20/25 05:00 03/20/25 07:30 03/20/25 07:57 Temperature 98.0 F 98.3 F Pulse Rate [Pulse Oximeter] 78 94 Respiratory Rate 18 16 Blood Pressure [Ri ght Arm] 133/80 125/67 Pulse Oximetry 93 97 97 Oxygen Delivery Me thod Room Air Room Air Room Air 03/20/25 12:05 Temperature 98.6 F Pulse Rate [Pulse Oximeter] 80 Respiratory Rate 16 Blood Pressure [Ri ght Arm] 111/69 Pulse Oximetry 95 Oxygen Delivery Me thod Room Air
--- NOTE | 2025-03-20 13:36 | PC.SOCIAL ---
Discharge planning: SW met with patient to discuss rehab. Patient is in agreement with this and would like for SW to talk with her son Levi. CALISTA called Levi and updated him with recommendations for rehab. Levi reports that he is agreeable to this. CALISTA discussed list for [employer] to choose from facilities. Levi states that he would like this emailed to him at [email or web address]. CALISTA emailed this list and asked for three places to send referrals to. Levi would like CALISTA to check with [facility] and [facility] in [place]. SW contacted [facility] and they state they do not take AARP. SW contacted [facility] and they state that patient will have a $225 OOP responsibility daily until patient meets her OOP max. [facility] state in-network facilities would be $0 the first 20 days followed by $203. CALISTA called Levi and updated him with this. Lvei states that he would talk with his family and get back to SW. Levi emailed CALISTA informing they would like an in-network facility and asked that CALISTA send to [facility] and to contact the [place] facilities to see if any are in network. CALISTA called [facility] and left a voicemail asking about openings and for the fax number to send a referral. CALISTA sent secure email referral to Chris, with [place] facilities, to see if any of their [place] facilities are in-network and have openings. SW awaiting a response.
--- NOTE | 2025-03-20 14:06 | PC.NURSE ---
End of shift note: Patient is very pleasant and cooperative. Patient has been up and out of bed most of today. Pain is tolerable using PO Tylenol and ice. Assist of 1, gaitbelt, and walker. Patient is baseline forgetful. Chair and bed alarm on. Had PT/OT today. Tolerating a regular diet. PIV taken out and catheter intact. okay with no IV. Lung sounds clear. Bowel sounds active. Voiding without difficulty. Did give miralax today as patient feels backed up. Denies nausea. Incision clean, dry and intact. Social work involved as patient needs SNF at discharged. VSS.
[2025-03-20] MEDS: DONEPEZIL 10 MG TABLET PO (21:25)
--- NOTE | 2025-03-21 00:34 | PC.NURSE ---
End of Shift: Patient pleasant and cooperative. Afebrile. Denies pain. Dressing to right hip C/D/I. CMS intact. Up to chair and walking in hallway with SBA, walker and gait belt. Tolerating regular diet with no nausea.
[2025-03-21 03:11] VITALS: BP 122/78; PULSE 94; RESP 16; TEMP 36.6; O2SAT 97
[2025-03-21 06:04] LABS: Hematocrit 36.9 % (33.0-51.0); Hemoglobin* 11.8 gm/dL (12.0-16.0); Immature Granulocytes Abs Auto 0.02 K/uL (0.00-0.30); Immature Granulocytes Pct Auto 0.2 %; Mean Corpuscular HGB Conc 32 gm/dL (32-36); Mean Corpuscular Hemoglobin 29 pg (26-34); Mean Corpuscular Volume 90 fL (80-100); RDW Coefficient of Variation % 13.1 % (11.5-15.5); Red Blood Count 4.10 m/uL (4.00-5.20); White Blood Count* 9.02 K/uL (4.50-11.00)
[2025-03-21 06:15] LABS: Lymphocytes Absolute Auto 1.60 K/uL (0.90-2.90); Slide Review Reflex No
--- NOTE | 2025-03-21 06:22 | PC.NURSE ---
Pt alert and oriented to self only. Afebrile. Pt denies pain, chest pain, SOB, and N/V. Pt?s right hip dressing is CDI. Pt is up SBA with walker and gait belt, voiding and tolerating a regular diet. Pt was up several times during night unsure of her surroundings but was easily reoriented and redirectable.
[2025-03-21] MEDS: ACETAMINOPHEN 325 MG TABLET 650 MG PO (06:55)
[2025-03-21 07:00] VITALS: O2SAT 97
[2025-03-21 08:00] VITALS: BP 121/65; PULSE 90; RESP 18; TEMP 36.9; O2SAT 97
[2025-03-21] MEDS: DOCUSATE SODIUM 100 MG CAPSULE PO (09:02)
[2025-03-21] MEDS: RIVAROXABAN 10 MG TABLET PO (09:02)
--- NOTE | 2025-03-21 10:20 | PM.DS1 ---
DS: Providers Provider Date Seen: 03/21/25 Date of admission: 03/16/25 13:13 Primary care physician: Dr. Foy, [facility] Admitting Clinician: Donny Hernandez MD Consults: PT, OT, SW, Orthopedic Surgery Attending Physician on discharge: Ana Goodrich MD Date of Discharge: 03/21/25 DS: Diagnosis Discharge Diagnosis (1) Femoral neck fracture: Status: Acute Problem details: - Day 3 s/p right hip bipolar hemiarthroplasty, anterior approach. DOS: 03/17/25, Dr. Holloway - seen by therapies during stay, SNF recommended and accepted at [facility] on 03/21 (2) Fall: Status: Acute Problem details: - while playing volleyball with family; baseline unsteady gait (3) Osteoporosis: Status: Acute Problem details: - consider additional management efforts in outpatient setting status post current hospitalization (4) Alzheimer disease: Status: Acute Problem details: - high risk for delirium in hospital. Discussed on admission with son, Levi, who indicates that he and his family members will continue to be near their mother at this time to help orient her and that they will bring full dose to help in this regard as well. Continue with other supportive efforts. - increased risk of impulsivity as well (5) Hypertension: Status: Acute Problem details: - continued Amlodipine (6) On hormone replacement therapy: Status: Acute Problem details: - current guidelines do not require holding postoperatively if treating with appropriate postoperative ppx, treating with Xarelto x5d, then 81mg ASA x25 days per Ortho (7) Hypercholesterolemia: Status: Acute Problem details: - on statin, will continue DS: Summary Hospital Course Hospital Course: Delfina was admitted to the hospital on 03/16 for a R femoral neck fracture, sustained during a fall while playing volleyball with her family approximately 5 days before presentation. She had a R hip bipolar hemiarthroplasty, anterior approach, with Dr. Holloway of Orthopedic Surgery on 03/17. Worked with therapist, SNF recommended and accepted at [facility] on 03/21. Discharge f/u plan, pain management, and ppx per Orthopedic surgery. Comorbidities remained stable and patient was ready for d/c to SNF on 03/21/25. Status at Discharge Functional status at discharge: uses cane/walker Overall status at discharge: patient is progressing back to baseline Time Spent with Patient Time attestation: Total time spent providing and/or coordinating discharge services: Time spent: Greater than 30 minutes Specific discharge activities: Med rec, multidisciplinary team discussion Exam Narrative: Exam Narrative: GEN: Alert and sitting comfortably in bed HEENT: Normal external ears, EOMIs bilaterally, no scleral icterus CV: RRR, No concerning murmurs R: Breathing comfortably, no wheezing Ext: wwp, no concerning edema Skin: Dressing over R hip incision is clean and dry, mild bruising, no other concerning skin findings Neuro: No focal deficits, no resting tremor Psych: Mild cognitive impairment is evident, no agitation Const: Vital Signs, click to edit/add: Vital Signs - 24 hr 03/20/25 12:05 03/20/25 15:00 03/20/25 15:00 Temperature 98.6 F Pulse Rate [Pulse Oximeter] 80 84 Respiratory Rate 16 16 Blood Pressure [Ri ght Arm] 111/69 Pulse Oximetry 95 95 Oxygen Delivery Me thod Room Air Room Air 03/20/25 16:00 03/20/25 19:48 03/20/25 23:55 Temperature 98.8 F 98.6 F Pulse Rate [Pulse Oximeter] 84 87 80 Respiratory Rate 16 16 Blood Pressure [Ri ght Arm] 121/72 102/57 L Pulse Oximetry 95 96 Oxygen Delivery Me thod Room Air Room Air 03/20/25 23:55 03/20/25 23:55 03/21/25 03:11 Temperature 98.0 F 97.8 F Pulse Rate [Pulse Oximeter] 80 94 Respiratory Rate 16 16 16 Blood Pressure [Ri ght Arm] 123/80 122/78 Pulse Oximetry 95 95 97 Oxygen Delivery Me thod Room Air Room Air Room Air DS: Data Data Completed and Pending Labs on day of discharge: Labs from last 24 hours 03/21/25 05:33 WBC 9.02 RBC 4.10 Hgb 11.8 L Hct 36.9 MCV 90 MCH 29 MCHC 32 RDW Coeff of Elizabeth 13.1 Plt Count 291 Neut % (Auto) 72.0 Lymph % (Auto) 17.2 L [place] % (Auto) 9.1 Eos % (Auto) 1.3 Baso % (Auto) 0.2 Neut # (Auto) 6.49 Lymph # (Auto) 1.60 [place] # (Auto) 0.80 Eos # (Auto) 0.12 Baso # (Auto) 0.02 Abs Immat Gran (auto) 0.02 Imm/Tot Granulo (auto) 0.2 Discharge Plan Discharge Disposition: [facility] Date of Admission: 03/16/25 13:13 Attending Provider on Discharge: Ana Goodrich Consulting Providers: Benjamin Holloway Primary Care Provider: Provider,Not a Local Condition: Improved Anticipated Discharge Date/Time: 03/21/25 10:12 Discharge Medications: New sennosides-docusate sodium [Stool Softener-Laxative] 8.6-50 mg Tablet 1 tab PO BID PRNQty: 60 0RF bisacodyl 10 mg Suppository 10 mg [place] DAILY PRN (Reason: Constipation) Qty: 30 0RF oxycodone 5 mg Tablet 2.5 mg PO Q4H PRN (Reason: Pain) Qty: 30 0RF aspirin 81 mg tablet,chewable 81 mg PO BID 25 Days Qty: 50 0RF Rx Instructions: start 03/23, treat for total of 25 days Xarelto 10 mg tablet 10 mg PO DAILY Qty: 1 0RF Rx Instructions: 1 more day (03/22), start 81mg ASA BID on 03/23 Continued acetaminophen 325 mg tablet 650 mg PO Q4H PRN donepezil [Aricept] 10 mg tablet 10 mg PO HS alendronate [Fosamax] 70 mg tablet 70 mg PO .QMONDAY amlodipine 5 mg tablet 5 mg PO DAILY rosuvastatin 5 mg tablet 5 mg PO HS calcium carb, citrate-vit D3 [Citracal-D3 Slow Release] 600 mg-12.5 mcg (500 unit) tablet extended release 2 tab PO DAILY estradiol 0.5 mg tablet 0.5 mg PO DAILY Qty: 90 0RF Discharge Orders: Discharge Order (Routine); Ordered 03/21/25 Ordered By: Ana Goodrich Activity Level: Activity as Tolerated, Weight Bearing as Tolerated and Use Walker Activity Detail: - Mepilex dressing to remain in place x 7-10 days (day 1 was 03/18/25). Dressing is waterproof. May shower. Remove dressing sooner if it becomes saturated. - Weight bear as tolerated with walker for assistance. - For pain management, recommend ice, elevation, Tylenol and Oxycodone PRN. - For DVT prophylaxis: Xarelto 10 mg daily x 5 days followed by aspirin 81 mg BID x 25 days. Also recommend ankle pumps when sedentary and frequent ambulation. - Patient will f/u with Graham Lantigua PA-C in 10-14 days for wound check. - Patient will f/u with Dr. Holloway at 6 weeks postop. - Notify Orthopedics with any questions or concerns. ([phone]) Discharge Diet: Regular Follow Up Appointments: Fran Foy MD [Staff Physician, Family Practice] Provider,Not a Local [Primary Care Provider, [facility]] Forms: [id number] Info Instructions Admit to: SNF Discharge Potential: Good Length of Stay: <30 days Can use facility standing orders?: Yes Code Status: Full Code Rehab Potential: Good Therapy: Physical Therapy and Occupational Therapy Therapy Orders: Total Hip Protocol Oxygen: No Urinary Catheter: No Lab Orders: CBC in one week Orders are good >30 days: Yes Signature: Ana Goodrich MD
--- NOTE | 2025-03-21 11:24 | PC.SOCIAL ---
Addendum entered and electronically signed by Su Larson LCSW 03/21/25 12:52: CALISTA reviewed Important Message from Medicare with patient and son. CALISTA provided sheet to family. SW updated facility that they will be arriving at 230. CALISTA provided Chris with Levi's phone number and email, with Levi's permission so that Sebastian can contact him for admission paperwork. Original Note: Discharge planning: CALISTA received secure email from [facility]ia[facility], stating that [facility] in [place] has a bed for patient today that is private and she would need to be there prior to 1500. CALISTA spoke with son Levi about this. Levi states first choice is still [facility] in [place] and requested that SW reach out to them again despite CALISTA having left two messages and not hearing back. Levi states he would like to reach out to the facility too and to his brothers with this information. CALISTA informed she would reach out again. CALISTA called [facility] [place] admission and left a voicemail. CALISTA also called the commercial front load driver to see if there are any other individuals in admissions and was transferred to another voicemail, which CALISTA left a voicemail at requesting a call back. CALISTA received call from son, Levi, who states that [facility] and has decided that he would prefer [facility] and that his brother Alex - [phone], will be the one transporting her and that he will be leaving from the cities now to come get her. CALISTA explained that she should be ready in 1-2 hours. CALISTA completed PAS - [id number] and sent to Chris. CALISTA also send Chris orders, discharge summary, and arrival time of 1:00. CALISTA called Alex to obtain ETA, when he hadn't arrived by 1130. Alex states he will arive closer to [phone]. CALISTA updated Chris that arrival will be between 130-200.
--- NOTE | 2025-03-21 14:54 | PC.NURSE ---
Discharge - Pt alert, oriented to self and situation, and oriented to year and month but not day. Mild recent impairment noted by RN and pt needed frequent reminders r/t call light use and bed/chair alarms. Up with walker/gait belt and standby assistance. Tolerating RA and regular diet/fluids. Denied pain in surgical hip during shift, however reported discomfort. Provided ice pack and offered assistance with repositioning to increase comfort with pt verbalizing improvement. Reported concerns regarding BM and constipation to RN, provided with medications per MAR and education with reinforcement needed. Pt d/c'd to rehab facility via wheelchair with family member at approximately 1250. Personal belongings left in room with pt son stating that his brother would picker/puller at later time. Labeled and placed in [address] storage room, engine generator assembler aware.
== END 2025-03-21 12:50 | DRG 522 ==
LOC: ED 11:26 → MEDSURG 12:12
PROVIDERS: Family Medicine; Orthopaedic Surgery Sports Medicine; Admitting Provider Internal Medicine; Emergency Provider Emergency Medicine; Visit Provider Internal Medicine
PROC: 0SRR01A Replacement of Right Hip Joint, Femoral Surface with Metal Synthetic Substitute, Uncemented, Open Approach (ICD-10-PCS; principal; 2025-03-17 12:30)
DX: S72.011A Unspecified intracapsular fracture of right femur, initial encounter for closed fracture (principal); G30.1 Alzheimer's disease with late onset; F02.C0 Dementia in other diseases classified elsewhere, severe, without behavioral disturbance, psychotic disturbance, mood disturbance, and anxiety; G89.18 Other acute postprocedural pain; I10 Essential (primary) hypertension; M81.0 Age-related osteoporosis without current pathological fracture; W01.0XXA Fall on same level from slipping, tripping and stumbling without subsequent striking against object, initial encounter; Y93.68 Activity, volleyball (beach) (court); Y99.8 Other external cause status; E78.00 Pure hypercholesterolemia, unspecified; Z79.890 Hormone replacement therapy; Z79.01 Long term (current) use of anticoagulants; Z79.82 Long term (current) use of aspirin
CPT/HCPCS: 01230; 36415; 64450; 72192; 73501; 73502; 76942; 80048; 81001; 85025; 85027; 85610; 86140; 87081; 87086; 93005; 97110; 97116; 97161; 97165; 97530; 97535; 99100; 99283; 99284; 99285; A9270; C1776; J0690; J0780; J1100; J1171; J2270; J2371; J2405; J2704; J2795; J3010; J3490; J7120

== ENCOUNTER 2025-05-23 10:10 | Outpatient (REF) | payer MEDICARE, SELFPAY ==
[2025-05-23 11:26] LABS: Chloride* 103 mmol/L (96-114); Potassium* 4.3 mmol/L (3.6-5.1); Sodium* 139 mmol/L (135-149)
[2025-05-23 11:28] LABS: Hematocrit* 44.4 % (33.0-51.0); Hemoglobin* 13.9 gm/dL (12.0-16.0); Immature Granulocytes Abs Auto 0.00 K/uL (0.00-0.30); Immature Granulocytes Pct Auto 0.0 %; Lymphocytes Absolute Auto 1.30 K/uL (0.90-2.90); Mean Corpuscular HGB Conc 31 gm/dL (32-36); Mean Corpuscular Hemoglobin 29 pg (26-34); Mean Corpuscular Volume 92 fL (80-100); RDW Coefficient of Variation % 14.2 % (11.5-15.5); Red Blood Count* 4.81 m/uL (4.00-5.20); White Blood Count* 6.71 K/uL (4.50-11.00)
[2025-05-23 11:29] LABS: Anion Gap 5 mEq/L (7-15); Blood Urea Nitrogen* 12 mg/dL (7-30); Calcium* 9.0 mg/dL (8.4-10.6); Carbon Dioxide* 31 mmol/L (20-32); Creatinine* 0.6 mg/dL (0.5-1.5); Estimated Glomerular Filt Rate 95 ml/min; Glucose* 108 mg/dL (60-115)
[2025-05-23 11:31] LABS: Slide Review Reflex No
== END 2025-05-23 10:11 | disposition home or self-care (01) ==
LOC: NPINS 10:10
PROVIDERS: Visit Provider Family Medicine
DX: I10 Essential (primary) hypertension (principal)
CPT/HCPCS: 80048; 85025